=== PATIENT | female | born 1995 | race Caucasian/White ===

== ENCOUNTER 2020-09-09 10:30 | Emergency (ER) | payer OTHER, SELFPAY ==
[2020-09-09 10:49] VITALS: BP 124/55; PULSE 109; RESP 16; TEMP 37.7; O2SAT 97; BMI 35.2
[2020-09-09] MEDS: Acetaminophen 325 MG TABLET 650 MG PO (11:09)
--- NOTE | 2020-09-09 11:11 | ED_ITS ---
HPI - Skin/Abscess/Foreign Bdy General Chief complaint: Skin/Abscess/Foreign Body Stated complaint: abscess Time Seen by Provider: 09/09/20 10:53 Source: patient Mode of arrival: ambulatory History of Present Illness HPI narrative: 25-year-old female presenting to ED complaining of worsening abscess to right flank x4 days with subjective fever at home. Admits was seen at urgent care on Wednesday, did not have I&D, but was prescribed Keflex and Bactrim without improvement. Admits area is growing/ more erythematous /painful. Denies drainage from area MD complaint: abscess/boil Onset (ago): day(s) Location: back Related Data Allergies Allergy/AdvReac Type Severity Reaction Status Date / Time adhesive AdvReac Rash Verified 09/09/20 10:48 Review of Systems Review of Systems: Constitutional: No Weight loss, +subjective Fever, No Chills Cardiovascular: No Chest Pain, No SOB Respiratory: No Cough, No Sputum Gastrointestinal: No Nausea, No Vomiting, No Diarrhea, No Abdominal pain Musculoskeletal: No joint pain, No Myalgias, No Joint Swelling Skin: + red painful lump/abscess to back Neuro: No Weakness, No Numbness, No Paresthesias Yes all other systems are reviewed and are negative [facility] Past Medical History Attestation statement: The following information was validated with the patient. Medical History (Updated 09/09/20 @ 10:56 by Brigette Han) No known health problems No known health problems Surgical History (Updated 09/09/20 @ 10:56 by Brigette Han) History of tonsillectomy Social History Social History Advance Directives: No Advance Directives Information Provided: No Physical Exam Vital Signs: Vital Signs: Vital Signs Temp Pulse Resp BP Pulse Ox 09/09/20 10:49 99.9 F 109 H 16 124/55 L 97 Body Mass Index 35.2 Const: General: cooperative and healthy appearing Orientation/consciousness: patient oriented x3 Limitations: no limitations HENMT: Head: Yes normal to inspection Ears: hearing grossly normal bilaterally General nose exam: Normal external nose present Face and sinus: Yes normal facial exam Eyes: General: appearance normal, both eyes and all related structures EOM: EOMs intact bilaterally Neck: Neck: Yes normal visual inspection Resp: Effort & Inspection: normal respiratory effort Cardio: Rate: regular rate Skin: Other: + abscess noted to right flank with surrounding erythema. + pointing with central fluctuance and surrounding induration. No streaking Rashes: no rashes Neuro: General: patient oriented x3 Gait exam (Neuro): Normal gait present Extrem: General: Yes normal to inspection Course Course Course Narrative: - moderate amount of pus drainage expressed from I&D of abscess - no leukocytosis, lactate negative - will switch patient's antibiotic to clindamycin, instructed to stop taking Bactrim/Keflex. Should be re-evaluated in 2 days Procedures Abscess I/D Site: back Side (if applicable): right Local Anesthetic: lidocaine 1% Amount of anesthesia used (mL): 3 Sent for culture/gram staining?: No Packing used?: none Complications: pain MDM - Skin/Abscess/Foreign Bdy MDM Narrative Medical decision making narrative: On exam low-grade temp 99.9?, tachycardic likely from fever, abscess noted to right flank with central fluctuance. Low concern for severe sepsis, likely local infection that needs drainage low concern for severe sepsis Will perform I&D, labs, lactate/blood cultures Differential Diagnosis Differential diagnosis: Likely abscess of skin or subcutaneous tissue and cellulitis Lab Data Result diagrams: 09/09/20 11:37 09/09/20 11:37 Labs: Lab Results 09/09/20 09/09/20 09/09/20 Range/Units 11:37 11:37 11:37 WBC 7.5 (4.8-10.8) X10*3/uL RBC 4.47 (4.20-5.50) X10*6/uL Hgb 12.3 (12.0-16.0) g/dl Hct 38.4 (37-47) % MCV 85.9 (80-98) fL MCH 27.5 (27.0-33.0) pg MCHC 32.0 (31.0-35.0) g/dl RDW 14.0 (11.0-16.0) % Plt Count 271 (160-400) X10*3/uL MPV 10.4 (9.4-12.3) fL Immature Gran % (Auto) 0.7 H (0.0-0.4) % Neut % (Auto) 83.4 H (45-73) % Lymph % (Auto) 8.4 L (20-40) % [place] % (Auto) 5.6 (2-11) % Eos % (Auto) 1.6 (0-4) % Baso % (Auto) 0.3 (0-2) % Lymph # (Auto) 0.6 L (1.2-4.9) X10*3/uL [place] # (Auto) 0.4 (0.1-1.2) X10*3/uL Eos # (Auto) 0.1 (0.0-0.4) X10*3/uL Baso # (Auto) 0.0 (0.0-0.2) X10*3/uL Abs Immat Gran (auto) 0.05 H (0.00-0.03) X10*3/uL Absolute Neuts (auto) 6.3 (2.0-8.3) X10*3/uL Absolute Nucleated RBC 0.000 (0.0-0.012) X10*3/uL Nucleated RBC % (auto) 0.0 (0.0-0.2) /100WBC Smear Tech's Comments VERIFIED Sodium 135 (135-145) mmol/L Potassium 4.7 (3.3-5.1) mmol/l Chloride 101 (96-108) mmol/L Carbon Dioxide 26 (22-29) mmol/L Anion Gap 13 (12-20) BUN 6 L (9-16) mg/dL Creatinine 0.73 (0.5-1.4) mg/dL Estim Creat Clear Calc 111.4 Estimated GFR > 60 Random Glucose 114 (60-115) mg/dL Lactic Acid 0.7 (0.5-2.0) mmol/L Calcium 9.2 (8.4-10.2) mg/dL
[2020-09-09 11:45] LABS: Basophils Percent Auto 0.3 % (0-2); Eosinophils Absolute Auto 0.1 X10*3/uL (0.0-0.4); Eosinophils Percent Auto 1.6 % (0-4); Hematocrit 38.4 % (37-47); Hemoglobin 12.3 g/dl (12.0-16.0); Imm Gran Abs Auto 0.05 X10*3/uL (0.00-0.03); Imm Gran Pct Auto 0.7 % (0.0-0.4); Lymphocytes Absolute Auto 0.6 X10*3/uL (1.2-4.9); Lymphocytes Percent Auto 8.4 % (20-40); MANUAL DIFF FLAG SCAN; Mean Corpuscular Hemoglobin 27.5 pg (27.0-33.0); Mean Corpuscular Volume 85.9 fL (80-98); Mean Platelet Volume 10.4 fL (9.4-12.3); Monocytes Absolute Auto 0.4 X10*3/uL (0.1-1.2); Monocytes Percent Auto 5.6 % (2-11); Neutrophils Absolute Auto 6.3 X10*3/uL (2.0-8.3); Neutrophils Percent Auto 83.4 % (45-73); Platelet Count 271 X10*3/uL (160-400); Red Blood Count 4.47 X10*6/uL (4.20-5.50); SCAN SMEAR FLAG 1; White Blood Count 7.5 X10*3/uL (4.8-10.8)
[2020-09-09 12:04] LABS: Lactic Acid 0.7 mmol/L (0.5-2.0)
[2020-09-09 12:07] LABS: Anion Gap 13 (12-20); Blood Urea Nitrogen 6 mg/dL (9-16); Calcium 9.2 mg/dL (8.4-10.2); Carbon Dioxide 26 mmol/L (22-29); Chloride 101 mmol/L (96-108); Creatinine Clr Calc Pharmacy 111.4; Estimated Glomerular Filt Rate > 60; Glucose Random 114 mg/dL (60-115); Potassium 4.7 mmol/l (3.3-5.1); Sodium 135 mmol/L (135-145)
[2020-09-09] MEDS: Lidocaine HCl 1 % 20 ML VIAL 5 ML SUBCUT (12:21)
[2020-09-09 12:59] LABS: SLIDE REVIEW VERIFIED
== END 2020-09-09 13:25 | disposition home or self-care (01) ==
PROVIDERS: Physician Assistant; Emergency Provider Emergency Medicine
DX: L02.212 Cutaneous abscess of back [any part, except buttock and flank] (principal)
CPT/HCPCS: 10060; 36415; 80048; 83605; 85025; 87040; 99283

== ENCOUNTER 2020-09-11 11:47 | Emergency (ER) | payer OTHER, SELFPAY ==
[2020-09-11 12:13] VITALS: BP 131/84; PULSE 85; RESP 17; TEMP 37.1; O2SAT 99; BMI 34.2
--- NOTE | 2020-09-11 12:18 | ED.WOUNDLAC ---
HPI - Wound/Laceration General Chief Complaint: Wound/Laceration Stated Complaint: recheck abscess Time Seen by Provider: 09/11/20 12:13 Source: patient Mode of arrival: ambulatory Limitations: no limitations History of Present Illness HPI narrative: 25 y/o here for wound recheck after she had an abscess drained on her right flank here on 09/09. She is feeling much better. She has been taking Clindamycin as prescribed. She states drainage is much less, now almost nothing. No fever, chills, diarrhea. Redness is improving per her boyfriend. Onset (ago): day(s) (4) Location: back Patient tetanus UTD: Yes Associated symptoms: none Treatments prior to arrival: bandage Related Data Previous Rx's Medication Instructions Recorded clindamycin HCl 450 mg PO TID 7 Days #32 cap 09/09/20 Allergies Allergy/AdvReac Type Severity Reaction Status Date / Time adhesive AdvReac Mild Rash Verified 09/11/20 12:16 Review of Systems Review of Systems: Constitutional: No Fever, No Chills Cardiovascular: No Chest Pain, No SOB Respiratory: No Cough Gastrointestinal: No Nausea, No Vomiting, No Diarrhea Musculoskeletal: No joint pain, No Myalgias Skin: +Skin Lesions - improving, No rash Heme/Lymph: No Bruising, No Lymphadenopathy PMFSH Past Medical History Attestation statement: The following information was validated with the patient. Medical History No known health problems No known health problems Surgical History (Updated 09/09/20 @ 10:56 by Brigette Han) History of tonsillectomy Social History Social History Advance Directives: No Advance Directives Information Provided: No Physical Exam Vital Signs: Vital Signs: Vital Signs Temp Pulse Resp BP Pulse Ox 09/11/20 12:13 98.7 F 85 17 131/84 99 Body Mass Index 34.2 Appearance: Alert. No acute distress. HEENT: normal inspection CVS: Normal heart rate and rhythm. Pulses normal. Respiratory: No respiratory distress. Back: right flank with healing abscess, minimal erythema, no drainage, no flutuance Neuro: Oriented X 3. Course Course Course Narrative: healing abscess - no need for further I&D. continue on abx and encouraged warm compresses. Discharge Plan Discharge Clinical Impression: Abscess Patient Disposition: Home, Self-Care Instructions: Abscess Follow-up (ED) Additional Instructions: Continue taking antibiotics as prescribed. Use warm compresses to the area 2-3 times per day to help facilitate additional drainage and healing. If when you are dont with your antibiotics, you notice there is increased pain, redness, drainage come back to the ER for further evaluation. Prescriptions: No Action clindamycin HCl 300 mg capsule 450 mg PO TID 7 Days Qty: 32 RF: 0
== END 2020-09-11 12:28 | disposition home or self-care (01) ==
PROVIDERS: Emergency Provider Emergency Medicine
DX: L02.211 Cutaneous abscess of abdominal wall (principal); R10.9 Unspecified abdominal pain
CPT/HCPCS: 99282; 99283

== ENCOUNTER 2023-08-23 09:51 | Outpatient (AMB) | payer OTHER, SELFPAY ==
[2023-08-23 10:00] VITALS: BP 118/70; PULSE 84; O2SAT 100; BMI 34.0
--- NOTE | 2023-08-23 10:00 | A.OFFPC_ITS ---
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 She needs refills on medications. 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 CPE >1 yr ago Acute issue(s): Wants hormonal info since ectopic Valacyclovir Wellbutrin Sleep apnea - has symptoms but states she does not want to wear a mask. PMHx: Ectopic , HSV1, Anxiety/Depression, PreDM SurgHx: Tonsils 2016 FHx: Sister: DM2. Dad: CAD & Early AR. Mom: HTN. pGF: Colon CA. mGGF: Skin CA SocHx: Vapes. EtOH 1-2 times a week. No drugs. 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 1. Little interest or pleasure in doing things: more than half the days 2. Feeling down, depressed, or hopeless: several days 3. Trouble falling or staying asleep, or sleeping too much: several days 4. Feeling tired or having little energy: nearly every day 5. Poor appetite or overeating: more than half the days 6. Feeling bad about yourself - or that you are a failure or have let yourself or your family down: several days 7. Trouble concentrating on things, such as reading the newspaper or watching television: several days 8. Moving or speaking so slowly that other people could have noticed. Or the opposite - being so fidgety or restless that you have been moving around a lot more than usual: not at all 9. Thoughts that you would be better off or of hurting yourself in some way: not at all Total score: 11 Source: Developed by Drs. David Lang, Mamie Bain, Bob Muro and colleagues, with an educational steve from [employer] Thrive Questionnaire I am a: Patient What is your living situation today?: I have a steady place to live Within the past 12 months, did the food you bought not last and you didn't have the money to get more?: Never true Within the past 12 months, did you worry whether your food would run out before you got money to buy more?: Never true Do you have trouble paying for medicines?: No Do you have trouble getting transportation to medical appointments?: No Do you have trouble paying your heating and electricity bill?: No Do you have trouble taking care of your child, family member or friend?: No Do you have trouble with day-to-day activities such as bathing, preparing meals, shopping, managing finances, etc.?: No Are you currently unemployed and looking for a job?: No Are you interested in more education?: No AUDIT C Alcohol Use Questionnaire (AUDIT-C) 1. How often do you have a drink containing alcohol?: 2-3 times a week 2. How many drinks containing alcohol do you have on a typical day when you are drinking?: 3 or 4 3. How often do you have six or more drinks on one occasion?: Never Total Score: 4 MARILYN-7 AMB Questionnaire MARILYN-7 Feeling nervous, anxious, or on edge: 1 = Several days Not being able to stop or control worryin = Several days Worrying too much about different things: 1 = Several days Trouble relaxin = Several days Being so restless that it is hard to sit still: 1 = Several days Becoming easily annoyed or irritable: 1 = Several days Feeling afraid as if something awful might happen: 1 = Several days Total MARILYN-7 score (0-4 normal; 5-9 mild; 10-14 moderate; 15-21 severe): 7 Source: Developed by Drs. David Lang, Mamie Bain, Bob Muro and colleagues, with an educational steve from [employer]. Review of Systems Const Denies chills, Denies fatigue, Denies fever(s), Denies headache(s) and Denies weakness ENT Denies dizziness and Denies headache(s) Card Denies chest pain, Denies lightheadedness, Denies dyspnea and Denies other (Palpitations) Resp Denies cough, Denies dyspnea, Denies wheezing and Denies other ( shortness of breath) Musc Denies numbness and Denies tingling Neuro Denies dizziness, Denies headache(s), Denies numbness, Denies tingling, Denies paresthesias and Denies weakness Psych Denies anxiety and Denies depression Endo Denies fatigue Aller/Immun Denies wheezing Physical exam (Primary Care) Vital Signs: Last Vital Signs Pulse 84 08/23/23 10:00 BP 118/70 08/23/23 10:00 Pulse Ox 100 08/23/23 10:00 Oxygen Delivery Method Room Air 08/23/23 10:00 BMI result Body Mass Index 34.0 Tobacco/Smoking Status: Tobacco use Status Tobacco use date assessed 08/23/23 08/23/23 10:19 Patient Tobacco Use Status Former Tobacco user 08/23/23 10:19 e-Cigarette/Vaping Use Currently Using 08/23/23 10:19 PHQ-9: PHQ-9 Score PHQ-9: Total score 11 08/23/23 10:24 Const General: no acute distress and well developed Nutritional Appearance: well nourished Orientation/consciousness: patient oriented x3 HENMT Head: Yes normocephalic and Yes atraumatic Eyes General: appearance normal, both eyes and all related structures Pupils: Equal, round and reactive pupils present EOM: EOMs intact bilaterally Resp Effort & Inspection: normal respiratory effort Auscultation: clear to auscultation bilaterally Cardio Rate: regular rate Rhythm: regular rhythm Heart sounds: S1 normal heart sound present, S2 normal heart sound present, no gallops, no murmurs and no rubs Neuro General: patient oriented x3 and gait normal Cranial nerves: Yes Equal, round and reactive pupils present Psych Affect: normal affect Assessment and Plan Assessment & Plan (1) History of ectopic : Code(s): Z87.59 - Personal history of other complications of , childbirth and the puerperium Plan: Check labs Patient is referred to OBGYN for netsuite consultant care (2) Anxiety with depression: Code(s): F41.8 - Other specified anxiety disorders Plan: Stable on bupropion Continue current medication regimen (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 - Herpesviral infection, unspecified Plan: Stable Continue valacyclovir suppression as prescribed (4) Pre-diabetes: Code(s): R73.03 - Prediabetes Plan: Family history of diabetes and patient has personal history of pre diabetes Check A1c (5) Screening for cervical cancer: Code(s): Z12.4 - Encounter for screening for malignant neoplasm of cervix Plan: Referred to OBGYN (6) Sleep apnea: Code(s): G47.30 - Sleep apnea, unspecified Plan: Refer to Sleep Medicine Recommended she sleep on her side and use a wedge pillow (7) Family history of early CAD: Code(s): Z82.49 - Family history of ischemic heart disease and other diseases of the circulatory system Plan: Her father had coronary artery disease and AR at age 45 (8) Laboratory exam ordered as part of routine general medical examination: Code(s): Z00.00 - Encounter for general adult medical examination without abnormal findings Plan: Check labs Orders: Orders Complete Blood Count Auto Diff Today Z00.00 - Encounter for general adult medical examination without abnormal findings Comprehensive [place]. Panel Fast Today Z00.00 - Encounter for general adult medical examination without abnormal findings Lipid Panel Today Z00.00 - Encounter for general adult medical examination without abnormal findings Microalbumin, Random (w Creat) Today I10 - Essential (primary) hypertension UA and rflx microscopic Today Z00.00 - Encounter for general adult medical examination without abnormal findings Lutenizing Hormone Today Z87.59 - Personal history of other complications of , childbirth and the puerperium TSH reflex Free T4 Today Z00.00 - Encounter for general adult medical examination without abnormal findings HCG Quantitative Today Z87.59 - Personal history of other complications of , childbirth and the puerperium Follicle Stimulating Hormone Today Z87.59 - Personal history of other complications of , childbirth and the puerperium Hemoglobin A1c Today R73.01 - Impaired fasting glucose, R73.03 - Prediabetes Referrals [employer]M EXAMINER Referral Z12.4 - Encounter for screening for malignant neoplasm of cervix Sleep Medicine Referral G47.30 - Sleep apnea, unspecified Coding Level of Care Code New Pt Level 4 (67221) Diagnoses History of ectopic Z87.59 Anxiety with depression F41.8 HSV-1 infection B00.9 Pre-diabetes R73.03 Screening for cervical cancer Z12.4 Sleep apnea G47.30 Family history of early CAD Z82.49 Laboratory exam ordered as part of routine general medical examination Z00.00
== END 2023-08-23 10:56 | disposition home or self-care (01) ==
PROVIDERS: PCP Family Medicine; Visit Provider Family Medicine
DX: R73.03 Prediabetes (principal); Z87.59 Personal history of other complications of pregnancy, childbirth and the puerperium; F41.8 Other specified anxiety disorders; Z82.49 Family history of ischemic heart disease and other diseases of the circulatory system; B00.9 Herpesviral infection, unspecified; G47.30 Sleep apnea, unspecified
CPT/HCPCS: 99204

== ENCOUNTER 2023-08-26 10:41 | Outpatient (REF) | payer OTHER, SELFPAY ==
[2023-08-26 13:21] LABS: MANUAL DIFF FLAG NO
[2023-08-26 13:25] LABS: Basophils Percent Auto 0.4 % (0-2); Eosinophils Absolute Auto 0.1 X10*3/uL (0.0-0.4); Eosinophils Percent Auto 0.7 % (0-4); Hematocrit 40.1 % (37.0-47.0); Hemoglobin 13.1 g/dl (12.0-16.0); Imm Gran Abs Auto 0.03 X10*3/uL (0.00-0.03); Imm Gran Pct Auto 0.4 % (0.0-0.4); Mean Corpuscular HGB Conc 32.7 g/dl (31.0-35.0); Mean Corpuscular Hemoglobin 28.7 pg (27.0-33.0); Mean Corpuscular Volume 87.9 fL (80.0-98.0); Mean Platelet Volume 11.5 fL (9.4-12.3); Monocytes Absolute Auto 0.4 X10*3/uL (0.1-1.2); Monocytes Percent Auto 5.2 % (2-11); Neutrophils Absolute Auto 5.6 x10*3/uL (2.0-8.3); Neutrophils Percent Auto 68.3 % (45-73); Platelet Count 273 X10*3/uL (160-400); Red Blood Count 4.56 X10*6/uL (4.20-5.50); Red Cell Distribution Width 14.4 % (11.0-16.0); White Blood Count 8.2 X10*3/uL (4.8-10.8)
[2023-08-26 13:45] LABS: Appearance Urine Cloudy; Color Urine Dark Yellow; Glucose Urine UA Negative (Negative); Leukocyte Esterase Urine Trace (Negative); Nitrite Urine Negative (Negative); Specific Gravity - Urine 1.025 (1.005-1.025); UMIC TRIGGER UA YES; Urine Blood Negative (Negative); Urine Ketones Negative (Negative); Urine Protein Trace mg/dL (Neg-Trace)
[2023-08-26 14:05] LABS: Creatinine Urine 321.69 mg/dL; Microalbum/Creatinine Ratio Ur 4.3 ug/mg cr (<30)
[2023-08-26 14:10] LABS: Alanine Aminotransferase 15 U/L (0-31); Albumin Level 4.2 g/dL (3.5-5.0); Alkaline Phosphatase 54 U/L (39-117); Anion Gap 13 (12-20); Aspartate Amino Transferase 12 U/L (5-31); Bilirubin Total 0.5 mg/dL (0.0-1.0); Blood Urea Nitrogen 9 mg/dL (9-16); Calcium 9.6 mg/dL (8.4-10.2); Carbon Dioxide 24 mmol/L (22-29); Chloride 105 mmol/L (96-108); Cholesterol 166 mg/dL (<200); Estimated Glomerular Filt Rate > 60; Glucose Fasting 83 mg/dL (60-99); HDL Cholesterol 31 mg/dL (>40); LDL Cholesterol Calculated 110 mg/dL (<100); Potassium 4.1 mmol/L (3.3-5.1); Sodium 138 mmol/L (135-145); Triglycerides 125 mg/dL (<150)
[2023-08-26 14:15] LABS: Estimated Average Glucose 108 mg/dL; Hemoglobin A1c % 5.4 % (<6.0)
[2023-08-26 14:20] LABS: Bacteria Urine 2+ (None Seen); Hyaline Casts Urine 0-2 /LPF (0-2); Squamous Epithelial Cell Urine >20 /HPF (0-2); WBC Urine 0-5 /HPF (0-5)
[2023-08-26 14:31] LABS: HCG Quantitative < 2 mIU/mL; TSH reflex Free T4 1.12 uIU/mL (0.32-4.0)
[2023-08-28 05:28] LABS: Follicle Stimulating Hormone 3.4 mIU/mL; Lutenizing Hormone 5.9 mIU/mL
== END 2023-08-26 10:42 | disposition home or self-care (01) ==
LOC: HO.HMGCLDS 10:41
PROVIDERS: PCP Family Medicine; Visit Provider Family Medicine
DX: Z00.00 Encounter for general adult medical examination without abnormal findings (principal); I10 Essential (primary) hypertension; R73.03 Prediabetes; Z87.59 Personal history of other complications of pregnancy, childbirth and the puerperium
CPT/HCPCS: 36415; 80053; 80061; 81001; 82043; 82570; 83001; 83002; 83036; 84443; 84702; 85025

== ENCOUNTER 2023-11-05 13:51 | Outpatient (AMB) | payer OTHER, SELFPAY ==
[2023-11-05 14:04] VITALS: BP 116/68; PULSE 73; O2SAT 98; BMI 33.8
--- NOTE | 2023-11-05 14:04 | A.OFFPC_ITS ---
Vital Signs 11/05/23 14:04 Height 5 ft Weight 173 lb BMI 33.8 BP 116/68 Blood Pressure Location Lt brachial Position Sitting Pulse 73 Pulse Source Pulse Oximeter Pulse Oximetry (%) 98 Oxygen Delivery Method Room Air Intake Visit Reasons: CPE with f/u labs and health maint, see comments Intake Note: Patient is here today for her physical today. Patient is requesting refills of her Wellbutrin today. Allergies adhesive Adverse Reaction (Mild, Verified 11/05/23 14:07) Rash Tobacco use date assessed: 11/05/23 HPI CPE with f/u labs and health maint, see comments HPI Details 28 y/o female presents for a CPE with f/ u labs and health maintenance. Labs were drawn 08/26/23. Reviewed labs with pt. CBC was fine. Triglycerides 125. TC 166. LDL 110. HDL low at 31. She reports last pap smear was normal. 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 1. Little interest or pleasure in doing things: several days 2. Feeling down, depressed, or hopeless: several days 3. Trouble falling or staying asleep, or sleeping too much: several days 4. Feeling tired or having little energy: several days 5. Poor appetite or overeating: more than half the days 6. Feeling bad about yourself - or that you are a failure or have let yourself or your family down: several days 7. Trouble concentrating on things, such as reading the newspaper or watching television: not at all 8. Moving or speaking so slowly that other people could have noticed. Or the opposite - being so fidgety or restless that you have been moving around a lot more than usual: not at all 9. Thoughts that you would be better off or of hurting yourself in some way: not at all Total score: 7 Source: Developed by Drs. David Lang, Mamie Bain, Bob Muro and colleagues, with an educational steve from [employer]. MARILYN-7 AMB Questionnaire MARILYN-7 Date MARILYN - 7 assessed: 11/05/23 Feeling nervous, anxious, or on edge: 1 = Several days Not being able to stop or control worryin = Several days Worrying too much about different things: 1 = Several days Trouble relaxin = Several days Being so restless that it is hard to sit still: 0 = Not at all Becoming easily annoyed or irritable: 0 = Not at all Feeling afraid as if something awful might happen: 1 = Several days Total MARILYN-7 score (0-4 normal; 5-9 mild; 10-14 moderate; 15-21 severe): 5 Source: Developed by Drs. David Lang, Mamie Bain, Bob Muro and colleagues, with an educational steve from [employer]. Physical exam (Primary Care) Vital Signs: Last Vital Signs Pulse 73 11/05/23 14:04 BP 116/68 11/05/23 14:04 Pulse Ox 98 11/05/23 14:04 Oxygen Delivery Method Room Air 11/05/23 14:04 BMI result Body Mass Index 33.8 Tobacco/Smoking Status: Tobacco use Status Tobacco use date assessed 11/05/23 11/05/23 14:11 Patient Tobacco Use Status Former Tobacco user 11/05/23 14:11 e-Cigarette/Vaping Use Currently Using 11/05/23 14:11 PHQ-9: PHQ-9 Score PHQ-9: Total score 7 11/05/23 14:22 Cardio Heart sounds: Murmur heart sound present (Faint) Assessment and Plan Assessment & Plan (1) Adult general medical exam: Code(s): Z00.00 - Encounter for general adult medical examination without abnormal findings Plan: 28-year-old?female?presents?for?complete?physical?exam Encouraged?healthy?diet?with?active?lifestyle?and?plenty?of?exercise (2) Screening for cervical cancer: Code(s): Z12.4 - Encounter for screening for malignant neoplasm of cervix Plan: She?has?an?appointment?with?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?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 director?at?[facility] (3) Faint heart murmur: Code(s): R01.1 - Cardiac murmur, unspecified Plan: Likely?12/04?systolic?murmur Checking?echocardiogram Orders: Orders UA and rflx microscopic Today Z00.00 - Encounter for general adult medical examination without abnormal findings Medications: Changed From bupropion HCl (Wellbutrin XL) 300 mg PO QAM To bupropion HCl (Wellbutrin XL) 300 mg PO QAM 90 days 90 tabs 3RF From bupropion HCl (Wellbutrin XL) 150 mg PO QAM To bupropion HCl (Wellbutrin XL) 150 mg PO QAM 90 days 90 tabs 3RF Coding Level of Care Code Est Pt Level 3 (89968) Est Pt Prev Care 18-39y(42788) Diagnoses Adult general medical exam Z00.00 Screening for cervical cancer Z12.4 Faint heart murmur R01.1
== END 2023-11-05 14:54 | disposition home or self-care (01) ==
PROVIDERS: PCP Family Medicine; Visit Provider Family Medicine
DX: Z00.00 Encounter for general adult medical examination without abnormal findings (principal); R01.1 Cardiac murmur, unspecified
CPT/HCPCS: 99213; 99395

== ENCOUNTER 2023-11-05 15:08 | Outpatient (REF) | payer OTHER, SELFPAY ==
[2023-11-05 19:17] LABS: Appearance Urine Clear; Color Urine Yellow; Glucose Urine UA Negative (Negative); Leukocyte Esterase Urine Negative (Negative); Nitrite Urine Negative (Negative); Urine Blood Negative (Negative); Urine Ketones Negative (Negative); Urine Protein Negative (Neg-Trace)
== END 2023-11-05 15:09 | disposition home or self-care (01) ==
LOC: HO.LAB 15:08
PROVIDERS: Visit Provider Family Medicine
DX: Z00.00 Encounter for general adult medical examination without abnormal findings (principal)
CPT/HCPCS: 81003

== ENCOUNTER → 2023-11-25 12:53 | Outpatient (REF) | payer OTHER, SELFPAY ==
--- NOTE | 2023-11-25 12:57 | CA_ITS ---
Transthoracic Echocardiogram Patient (Last, First, Middle): Kely Dee, Gender: Female Date of : 1995 Age: 28 Procedure Date: 11/25/2023 Procedure Type: Transthoracic Echocardiogram Location: OP Height: 152.4 cm Weight: 78.02 kg BSA: 1.75 m2 Heart Rate: bpm BP: 120 / 82 mmHg Com Writer: PAOLA Referring MD: Ayden Perez MD Symptoms: R01.1 - Cardiac murmur, unspecified Study Quality: Adequate ECG Rhythm: Sinus Conclusions: - The left ventricular systolic function is normal. The calculated ejection fraction is 61% by biplane method. - No obvious valvular pathology seen on this study. Findings Left Ventricle Normal left ventricular cavity size. There is normal left ventricular wall thickness. The left ventricular systolic function is normal. The calculated ejection fraction is 61% by biplane method. There is no evidence of regional wall motion abnormalities. Diastolic function is normal for age. LV peak GLS -23.1% (normal). Right Ventricle Normal right ventricular cavity size and systolic function. Atria Both atria are normal in size. Aortic Valve There is a normal trileaflet aortic valve. There is no aortic valve stenosis. There is no aortic valve regurgitation. Mitral Valve The mitral valve appears normal. There is no mitral valve regurgitation. There is no mitral valve stenosis. Pulmonic Valve The pulmonic valve is likely normal. Tricuspid Valve Normal tricuspid valve structure. There is trace tricuspid valve regurgitation. There is no evidence of pulmonary hypertension. Great Vessels The asc aorta is normal in size. Venous The inferior vena cava is normal in size and collapses greater than 50% with inspiration. Pericardium/Pleural There is no evidence of pericardial effusion. Prior Study Comparison No prior study available for comparison. Recommendations, Care & Conclusions No obvious valvular pathology seen on this study. Measurements 2D Linear Measurements IVSd: 0.80 0.6-0.9/0.6-1.0 cm LVIDd: 5.03 3.9-5.3/4.2-5.9 cm LVIDd Index: 2.87 2.4-3.2/2.2-3.1 cm/m2 LVIDs: 3.07 2.0-3.6 cm LVPWd: 0.82 0.7-1.1 cm LA Diam: 3.70 2.7-3.8/3.0-4.0 cm LAIDs Index: 2.11 1.5-2.3 cm/m2 LV Mass: 173.63 67-162/88-224 g LV Mass Index: 99.22 43-95/49-115 g/m2 LVOT Diam: 2.00 3.0+(-)1.3 cm 2D Systolic Function EF 4C: 64.30 >55% EF 2C: 59.20 >55% EF BiP: 60.90 >55% Mitral Valve MV Pk E: 1.33 MV PK A: 0.45 MV Decel Time: 207.00 E/A: 3.00 E'Lateral: 14.10 E'Medial: 8.81 E/E' Med: 15.10 E/E' Lat: 9.40 PHT: 61.00 MVA PHT: 3.61 Decel [place]: 6.45 Aortic Valve AoV Pk Juan Miguel: 1.56 AoV Mn Juan Miguel: 1.06 AoV VTI: 0.37 AoV Pk Grad: 10.00 Aov Mn Grad: 5.00 TIFFANY Cont.VTI: 2.28 LVOT LVOT Pk Juan Miguel: 1.17 LVOT Mn Juan Miguel: 0.79 LVOT VTI: 0.27 LVOT Pk Grad: 5.00 LVOT Mn Grad: 3.00 LVOT Diam: 2.00 LVOT Area: 3.14 Diastolic Function MV Pk E: 1.33 MV Pk A: 0.45 E/A: 3.00 E'Medial: 8.81 E/E' Med: 15.10 E' Laterial: 14.10 E/E' Lat: 9.40 Right Ventricle TAPSE (mm): 27.30 TVS' Juan Miguel: 13.80 Tricuspid Valve TR Pk Juan Miguel: 2.36 TR Pk Grad: 22.00 RA Press: 3.00 RVSP: 25.00 Great Vessels Aorta Sinus of Valsalva: 2.52 2.0-3.[address] Ridge: 2.26 1.7-3.4 cm Ao Asc: 2.70 2.1-3.4 cm Ao Arch: 2.30 Updated in Other Vendor System with Status of Final John Valdez MD electronically signed on 11/27/2023 11:47:53 AM with status of Final
== END ==
LOC: HO.CARD 12:53
PROVIDERS: PCP Family Medicine; Visit Provider Family Medicine
DX: R01.1 Cardiac murmur, unspecified (principal); Z82.49 Family history of ischemic heart disease and other diseases of the circulatory system
CPT/HCPCS: 93306; 93356

== ENCOUNTER → 2023-11-25 12:57 | Outpatient (BNV) | payer OTHER, SELFPAY | PROVIDERS: PCP Family Medicine; Visit Provider Internal Medicine | DX: R01.1 Cardiac murmur, unspecified (principal) | CPT/HCPCS: 93306 ==

== ENCOUNTER 2023-12-10 15:15 | Outpatient (AMB) | payer OTHER, SELFPAY ==
[2023-12-10 15:17] VITALS: BP 118/68; PULSE 68; O2SAT 98; BMI 32.8
--- NOTE | 2023-12-10 15:17 | A.OFFVIS_ITS ---
Intake Vital Signs 12/10/23 15:17 Height 5 ft Weight 168 lb BMI 32.8 BP 118/68 Blood Pressure Location Rt brachial Position Sitting Pulse 68 Pulse Source Pulse Oximeter Pulse Oximetry (%) 98 Oxygen Delivery Method Room Air Intake Visit Reasons: Snoring Retail Operations Manager Required: No Hand Compositor: Hand Compositor offered & declined Accompanied by: Self / Same As Patient Allergies adhesive Adverse Reaction (Mild, Verified 12/10/23 15:23) Rash Medication List - Last Reconciled 12/10/23 by Louise Guidry LPN bupropion HCl (Wellbutrin XL) 300 mg PO QAM 90 days bupropion HCl (Wellbutrin XL) 150 mg PO QAM 90 days inositol mg PO valacyclovir 500 mg PO DAILY HPI Snoring HPI Details Kely is pleasant 28 year old, minimal former tobacco smoker, currently vapes nicotine. She was referred by PCP for pulmonary evaluation. She reports symptoms suggestive of FRANCK with loud snoring and daytime fatigue. She reports prior paroxsymal nocturnal dyspnea but states after recent weight loss of approximately 20 lbs this has resolved. She reports undergoing a sleep study years ago which was negative and is s/p tonsillectomy. She denies any respiratory symptoms otherwise and is not on any respiratory medications. She denies any pertinent family history. She denies any occupational exposures. She denies any environmental allergies. 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 Cognitive needs: No Hearing needs: No Vision needs: No Review of Systems Const Denies chills, Denies excessive sweating, Denies fever(s), Denies headache(s) and Denies night sweats Eyes Denies dry eyes, Denies irritation and Denies itchy eyes ENT Reports Normal hearing present, Denies headache(s), Denies nasal congestion, Denies nasal discharge, Denies post nasal drip and Denies sore throat Card Denies chest pain, Denies chest pain at rest, Denies chest pain with activity, Denies claudication, Denies leg edema, Denies dyspnea, Denies dyspnea on exertion, Denies orthopnea and Denies paroxysmal nocturnal dyspnea Resp Denies chest congestion, Denies cough, Denies excessive phlegm production, Denies pain on inspiration, Denies pain with cough, Denies dyspnea, Denies dyspnea on exertion, Denies stridor and Denies wheezing Musc Denies myalgias Neuro Reports Normal hearing present and Denies headache(s) Endo Denies excessive sweating Liam/Lymph Denies lymphadenopathy Aller/Immun Denies itchy eyes, Denies seasonal rhinorrhea and Denies wheezing Physical Exam Vital Signs: Last Vital Signs Pulse 68 12/10/23 15:17 BP 118/68 12/10/23 15:17 Pulse Ox 98 12/10/23 15:17 Oxygen Delivery Method Room Air 12/10/23 15:17 BMI result Body Mass Index 32.8 Const General: cooperative, healthy appearing, comfortable, no acute distress, well developed and alert Orientation/consciousness: patient oriented x3 Limitations: no limitations HEENT Head: Yes normal to inspection, Yes normocephalic and Yes atraumatic Ears: hearing grossly normal bilaterally and external ears normal Eyes General: appearance normal, both eyes and all related structures Eyelids: Yes eyelids normal Sclerae: sclerae normal EOM: EOMs intact bilaterally Neck Neck: Yes normal visual inspection and Yes no lymphadenopathy Lymphatic: no lymphadenopathy noted Chest Chest palpation & inspection: normal inspection of the chest Resp Effort & Inspection: normal respiratory effort, able to speak in complete sentences, no audible wheezes, no cough, no stridor, not tachypneic, no tripod positioning and no use of accessory muscles Auscultation: clear to auscultation bilaterally Cardio Jugular venous distension: no JVD Rate: regular rate Rhythm: regular rhythm Skin Other: warm, dry General skin exam: no rashes or lesions noted Neuro General: patient oriented x3 Cranial nerves: Yes Normal hearing present Cognition (Neuro): normal cognition Gait exam (Neuro): Normal gait present Extrem General: Yes normal to inspection, Yes capillary refill normal, Yes no clubbing, cyanosis or edema and Yes no pedal edema Psych Appearance: grossly normal and well kempt Speech and movement: Normal speech and movement present and Clear speech present Affect: normal affect Attitude: cooperative Thought process: Normal thought process present Thought content: Normal thought content present Insight: Good insight present (Psych) Judgement: Good judgement present (Psych) Assessment & Plan Assessment & Plan (1) Daytime somnolence: Code(s): R40.0 - Somnolence (2) Snoring: Code(s): R06.83 - Snoring Plan Kely reports symptoms consistent with obstructive sleep apnea. Will send for home sleep study to evaluate. All questions were answered and patient is in agreement of plan. Will follow up to review results. Orders: Orders RT home sleep study Today R06.83 - Snoring, R40.0 - Somnolence Coding Level of Care Code New Pt Level 3 (32992) Diagnoses Daytime somnolence R40.0 Snoring R06.83
== END 2023-12-10 15:49 | disposition home or self-care (01) ==
PROVIDERS: PCP Family Medicine; Referring Provider Family Medicine; Visit Provider Nurse Practitioner Family
DX: R40.0 Somnolence (principal); R06.83 Snoring
CPT/HCPCS: 99203

== ENCOUNTER → 2023-12-10 15:15 | Outpatient (BNVA) | payer OTHER, SELFPAY | PROVIDERS: PCP Family Medicine; Referring Provider Family Medicine; Visit Provider Nurse Practitioner Family ==

== ENCOUNTER 2023-12-16 15:28 | Outpatient (AMB) | payer OTHER, SELFPAY ==
--- NOTE | 2023-12-16 15:06 | MHC.PC.OV ---
Intake Visit Reasons: f/u murmur Intake Note: Patient is following up on testing for heart murmur today. Allergies adhesive Adverse Reaction (Mild, Verified 12/16/23 15:25) Rash Tobacco use date assessed: 12/16/23 HPI f/u murmur HPI Details Follow-up?echocardiogram?for?faint?systolic?murmur Echocardiogram?is?normal.?? She?had?also?had?mild?hematuria?on?urinalysis.??Repeat?urinalysis?is?clear. Lastly,?patient?is?requesting?medication?for?weight?loss?and?has?a?sister?who?uses?Wegovy. Patient?has?history?of?pre?diabetes?and?family?history?of?diabetes. 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 David Lang, Mamie Bain, Bob Muro and colleagues, with an educational steve from [employer]. Review of Systems Const Denies chills, Denies fatigue, Denies fever(s), Denies headache(s) and Denies weakness ENT Denies dizziness and Denies headache(s) Card Denies chest pain, Denies lightheadedness, Denies dyspnea and Denies other (Palpitations) Resp Denies cough, Denies dyspnea, Denies wheezing and Denies other ( shortness of breath) Musc Denies numbness and Denies tingling Neuro Denies dizziness, Denies headache(s), Denies numbness, Denies tingling, Denies paresthesias and Denies weakness Psych Denies anxiety and Denies depression Endo Denies fatigue Aller/Immun Denies wheezing Physical exam (Primary Care) Tobacco/Smoking Status: Tobacco use Status Tobacco use date assessed 12/16/23 12/16/23 15:27 Patient Tobacco Use Status Former Tobacco user 12/16/23 15:07 e-Cigarette/Vaping Use Currently Using 12/16/23 15:07 Const Other: Telemedicine?encounter.??Audio?only.??No?exam Telehealth Telehealth Location of provider rendering services: practice address Location of patient: address on file Patient Identification confirmed using: Name, : Yes Telehealth method: voice only Patient verbally consented to treatment: Yes Patient verbally consented to billing insurance company: Yes Patient informed of any privacy concerns related to visit: Yes Minutes spent on Phone/Video with Pt.: 5 Assessment and Plan Assessment & Plan (1) Benign cardiac murmur: Code(s): R01.0 - Benign and innocent cardiac murmurs Plan: Echocardiogram?is?normal. Benign?cardiac?murmur (2) Pre-diabetes: Code(s): R73.03 - Prediabetes Plan: Pre?diabetes?and?obesity. Patient?would?like?to?try?Wegovy. Order (3) Obesity: Code(s): E66.9 - Obesity, unspecified Plan: As?above Coding Level of Care Code Tele Est Pt Level 2 (18694) Diagnoses Benign cardiac murmur R01.0 Pre-diabetes R73.03 Obesity E66.9
--- OUTSIDE RECORDS SUMMARY | 2023-12-16 15:30 | XMS_ITS | Continuity of Care Document ---
Author Name Unknown Organization [facility] Address [address] [place] [address]- Care Team Providers Care Storeroom Supervisor Name Role Phone Not on Staff, PCP Primary Care Physician Unavail able Encounter [facility] Date(s): 05/12/22 - 05/12/[address] [address]- Encounter Diagnosis of unknown anatomic location(Discharge Diagnosis) - 05/12/22 Discharge Disposition: A-D/C Home Attending Physician: Analy Patel MD Admitting Physician: Analy Patel MD Referring Physician: Not on Staff, Referring MD Problem List Diagnosis Diagnosis Type Effective Dates Health Status Cl inical Service Informant of unknown anatomic location Discharge Diagnosis 05/12/22 Vital Signs Most recent to oldest [Reference Range]: 1 2 3 Oxygen Saturation [94-100 %] 100 % (05/12/22 3:10 PM) 100 % (05/12/22 11:51 AM) 100 % (05/12/22 8:16 AM) Pulse Rate [55-90 bpm] 62 bpm (05/12/22 3:10 PM) 72 bpm (05/12/22 11:51 AM) 70 bpm (05/12/22 8:16 AM) Blood Pressure [90-138/55-84 mm Hg] 118/74mm Hg (05/12/22 3:10 PM) 115/77mm Hg (05/12/22 11:51 AM) 123/71mm Hg (05/12/22 8:16 AM) Respiratory Rate [16-30 br/min] 16 br/min (05/12/22 3:10 PM) 15 br/min *L* (05/12/22 11:51 AM) 14 br/min *L* (05/12/22 8:16 AM) Temperature [96.8-100.4 DegF] 97.6 DegF (05/12/22 8:16 AM) 97.8 DegF (05/12/22 7:23 AM) Mode of Delivery (Oxygen) Room air (05/12/22 3:10 PM) Room air (05/12/22 11:51 AM) Room air (05/12/22 8:16 AM) Blood pressure sites Arm, left (05/12/22 8:16 AM) Arm, right (05/12/22 7:23 AM) Temperature Route Oral (05/12/22 8:16 AM) Oral (05/12/22 7:23 AM)
--- OUTSIDE RECORDS SUMMARY | 2023-12-16 15:30 | XMS_ITS | Continuity of Care Document ---
Author Name Unknown Organization [facility] Address [address] [place] [address]- Care Team Providers Care Cathode Ray Tube Assembler Name Role Phone Not on Staff, PCP Primary Care Physician Unavail able Encounter [facility] Date(s): 05/12/22 - 06/11/[address] [address]- Allergies, Adverse Reactions, Alerts Substance Reaction Severity Status Latex Rash Active Medications ValACYclovir = 500 mg, By Mouth, 0 Refills, Maintenance, 05/26/22 12:56:00 EDT, Partial fill upon patient request if the prescription is for a schedule II opioid drug. Start Date: 05/26/22 Status: Ordered Wellbutrin 100 mg oral tablet = 300 mg, By Mouth, 0 Refills, Maintenance, 05/26/22 12:55:00 EDT, Partial fill upon patient request if the prescription is for a schedule II opioid drug. Start Date: 05/26/22 Status: Ordered
--- OUTSIDE RECORDS SUMMARY | 2023-12-16 15:30 | XMS_ITS | Continuity of Care Document ---
Author Name Unknown Organization [facility] Address [address] [place] [address]- Care Team Providers Care Sled Maker Name Role Phone Not on Staff, PCP Primary Care Physician Unavail able Encounter [facility] Date(s): 06/17/22 - 07/17/[address] [address]- Attending Physician: Rayshawn Flanagan Admitting Physician: Rayshawn Flanagan Referring Physician: AdmtrRayshawn Allergies, Adverse Reactions, Alerts Substance Reaction Severity Status Latex Rash Active Medications Balziva 0.4 mg-35 mcg oral tablet 1 tablet, By Mouth, Daily, # 30 tablet, 3 Refills, Maintenance, 06/17/22 9:10:00 EDT, [facility]/pharmacy #[id number], Partial fill upon patient request if the prescription is for a schedule II opioid drug., 1 tablet By Mouth Daily, 152.4, cm, 06/17/22 8:25:00 EDT... Start Date: 06/17/22 Status: Ordered ValACYclovir = 500 mg, By Mouth, 0 [...] opioid drug. Start Date: 05/26/22 Status: Ordered Problem List Condition Effective Dates Status Health Status Inform ant Obese class I(Confirmed) Active
--- OUTSIDE RECORDS SUMMARY | 2023-12-16 15:30 | XMS_ITS | Continuity of Care Document ---
Author Name Unknown Organization [facility] Address [address] [place] [address]- Care Team Providers Care Job Printer Name Role Phone Not on Staff, PCP Primary Care Physician Unavail able Encounter [facility] Date(s): 05/26/22 - 06/25/[address] [address]- Allergies, Adverse Reactions, Alerts Substance Reaction Severity Status Latex Rash Active Medications Balziva 0.4 mg-35 mcg oral tablet 1 tablet, By Mouth, Daily, # 30 tablet, 3 Refills, Maintenance, 06/17/22 9:10:00 EDT, [facility]/pharmacy #[id number], Partial fill upon patient request [...]
--- OUTSIDE RECORDS SUMMARY | 2023-12-16 15:30 | XMS_ITS | Continuity of Care Document ---
Author Name Unknown Organization [facility] Address [address] [place] [address]- Care Team Providers Care Assurance Auditor Name Role Phone Ravi Elena Primary Care Physician [phone] Encounter [facility] Date(s): 06/22/23 - 07/22/23 [facility] [address] [place], [place] [address] Allergies, Adverse Reactions, Alerts Substance Reaction Severity Status Latex Rash Active Immunizations Given and Recorded Vaccine Date Status Refusal Reason tetanus/diphtheria/pertussis, acel(Tdap) 01/09/22 Recorded Medications buPROPion 150 mg/24 hours (XL) oral tablet, extended release 1 tablet = 150 mg, By Mouth, Every 24 hours, Take with a 300 mg tablet for total dose of 450 mg, # 90 tablet, 1 Refills, Maintenance, 07/15/23 13:49:00 EDT, ER Tablet, [facility]/pharmacy #[id number], Partial fill upon patient request if the prescription is for a... Start Date: 07/15/23 Status: Ordered buPROPion 300 mg/24 hours (XL) oral tablet, extended release 1 tablet, By Mouth, Daily, # 90 tablet, 1 Refills, Maintenance, 07/15/23 13:48:00 EDT, [facility]/pharmacy#[id number], 152.4, cm, 12/17/22 11:29:00 EST, Height, 76.3, kg, 05/26/22 13:09:00 EDT, Dry Weight Start Date: 07/15/23 Status: Ordered valACYclovir 500 mg oral tablet 500 mg, By Mouth, Daily, # 90 capsule, Refills 3, Tot. Refills 3, Maintenance, 07/15/23 13:50:00 EDT, Route to Pharmacy Electronically, [facility]/pharmacy #[id number], Partial fill upon patient request if the prescription is for a schedule II opioid drug., 152.4,... Start Date: 07/15/23 Status: Ordered Problem List Condition Confirmation Course Effective Dates Status Health St atus Informant Obese class I Confirmed Active Social History Social History Type Response Smoking Status Former smoker, quit more than 30 days ago entered on: 12/17/22 Sex Patient Care team information Care Team Personnel Name: Ravi Elena Position: S PCO Associate Professional Member Role: PCP Address: Address: [address] [place] [address] [facility] [address]- Care Team Related Persons Name: SAMARA CALLEJAS Address: home [address] [place] [address] Name: DAKOTA CALLEJAS Address: [address] [place] [address] Name: LUIZA SANTOS Address: [address] [place] [address]
--- OUTSIDE RECORDS SUMMARY | 2023-12-16 15:30 | XMS_ITS | Continuity of Care Document ---
Author Name Unknown Organization [facility] Address [address] [place] [address]- Care Team Providers Care Hris Administrator Name Role Phone Ravi Elena Primary Care Physician [phone] Encounter [facility] Date(s): 07/15/23 - 08/14/23 [facility] [address] [place] [address]- Attending Physician: Rayshawn Flanagan Admitting Physician: Rayshawn [...] Refills, Maintenance, 07/15/23 13:49:00 EDT, ER Tablet, [facility]/pharmacy #[id number], Partial fill upon patient request if the prescription is for a... Start Date: 07/15/23 Status: Ordered buPROPion 300 mg/24 hours (XL) oral tablet, extended release 1 tablet, By Mouth, Daily, # 90 tablet, 1 Refills, Maintenance, 07/15/23 13:48:00 EDT, [facility]/pharmacy#[id number], 152.4, cm, 12/17/22 11:29:00 EST, Height, 76.3, kg, 05/26/22 13:09:00 EDT, Dry Weight Start Date: 07/15/23 Status: Ordered valACYclovir 500 mg oral tablet 500 mg, By Mouth, Daily, # 90 capsule, Refills 3, Tot. Refills 3, Maintenance, 07/15/23 13:50:00 EDT, Route to Pharmacy Electronically, [facility]/pharmacy #[id number], Partial fill upon patient request if the [...] Associate Professional Member Role: PCP Address: Address: [address] [place] [address] [place] [address]- Care Team Related Persons Name: SAMARA CALLEJAS Address: home [address] [place] [id number] Name: DAKOTA CALLEJAS Address: home [address] [place] [address] Name: LUIZA SANTOS Address: [address] [address]
--- OUTSIDE RECORDS SUMMARY | 2023-12-16 15:30 | XMS_ITS | Continuity of Care Document ---
Author Name Unknown Organization [facility] Address [address] [facility] [place] [address]- Care Team Providers Care Orthodontic Lab Technician Name Role Phone Not on Staff, PCP Primary Care Physician Unavail able [place] [facility] [place] 05/21/22 - 06/20/22 [facility] Sherlyn Velizs [facility] [address] [facility] [place] [address]- Allergies, Adverse Reactions, Alerts Substance Reaction Severity Status Latex Rash Active Medications Balziva 0.4 mg-35 mcg oral tablet 1 tablet, By Mouth, Daily, # 30 tablet, 3 Refills, Maintenance, 06/17/22 9:10:00 EDT, [facility]/pharmacy #[id number], Partial fill upon patient request if [...]
--- OUTSIDE RECORDS SUMMARY | 2023-12-16 15:30 | XMS_ITS | Continuity of Care Document ---
Author Name Unknown Organization [facility] Address [address] [place] [address]- Care Team Providers Care Technologist Infectious Disease Name Role Phone Ravi Elena Primary Care Physician Encounter [facility] Date(s): 03/19/23 - 07/17/23 [facility] [address] [place], [place] [address] Attending Physician: Britni Prakash MD Allergies, Adverse Reactions, Alerts Substance Reaction Severity [...] Refills, Maintenance, 07/15/23 13:49:00 EDT, ER Tablet, [facility]/pharmacy #[id number], Partial fill upon patient request [...] 07/15/23 13:50:00 EDT, Route to Pharmacy Electronically, [facility]/pharmacy #[id number], Partial fill upon patient request if the [...] Care Team Personnel Name: Ravi Elena Position: [facility] PCO Associate Professional Member Role: PCP Address: Address: [address] [place] [address] [place] [address]- Care Team Related Persons Name: SAMARA CALLEJAS Address: home [address] [place] [address] Name: DAKOTA CALLEJAS Address: [address] [place] [address] Name: LUIZA SANTOS Address: [place] [address] [place] [address]
--- OUTSIDE RECORDS SUMMARY | 2023-12-16 15:30 | XMS_ITS | Continuity of Care Document ---
Author Name Unknown Organization [facility] Sherlyn garcias [facility] Address [address] [place] [address]- Care Team Providers Care Associate Professor Of Art History Name Role Phone Not on Staff, PCP Primary Care Physician Unavail able Encounter [facility] Date(s): 05/18/22 - 06/17/22 [facility] Sherlyn Velizs [facility] [address] [facility] [place] [address]- Allergies, Adverse Reactions, Alerts Substance Reaction Severity Status Latex Rash Active Medications Balziva 0.4 mg-35 mcg oral tablet 1 tablet, By Mouth, Daily, # 30 tablet, 3 Refills, Maintenance, 06/17/22 9:10:00 EDT, [facility]/pharmacy #[id number], Partial [...]
--- OUTSIDE RECORDS SUMMARY | 2023-12-16 15:30 | XMS_ITS | Continuity of Care Document ---
Author Name Unknown Organization [facility] Sherlyn Crocker n's [facility] Address [address] [facility] [place] [address]- Care Team Providers Care Whipper Beater Name Role Phone Not on Staff, PCP Primary Care Physician Unavail able [place] [facility] [place]22 [facility] Sherlyn Velizs [facility] [address] [facility] [place] [address]- Allergies, Adverse Reactions, Alerts Substance Reaction Severity Status Latex Rash Active Medications Balziva 0.4 mg-35 mcg oral tablet 1 tablet, By Mouth, Daily, # 30 tablet, 3 Refills, Maintenance, 06/17/22 9:10:00 EDT, [facility]/pharmacy #[id number], Partial fill upon patient [...]
--- OUTSIDE RECORDS SUMMARY | 2023-12-16 15:30 | XMS_ITS | Continuity of Care Document ---
Author Name Unknown Organization [facility] Sherlyn Crocker n's [facility] Address [address] [facility], [address] [place] [address]- Care Team Providers Care Rough Planer Tender Name Role Phone Not on Staff, PCP Primary Care Physician Unavail able [place] [facility] [place] 05/20/22 - 06/19/22 [facility] Sherlyn Velizs [facility] [address] [facility], [address] [place] [address]- Allergies, Adverse Reactions, Alerts Substance Reaction Severity Status Latex Rash Active Medications Balziva 0.4 mg-35 mcg oral tablet 1 tablet, By Mouth, Daily, # 30 tablet, 3 Refills, Maintenance, 06/17/22 9:10:00 EDT, [facility]/pharmacy #[id number], Partial fill upon patient request if [...]
--- OUTSIDE RECORDS SUMMARY | 2023-12-16 15:30 | XMS_ITS | Continuity of Care Document ---
Author Name Unknown Organization [facility] Address [address] [place] [address]- Care Team Providers Care Customer Service Dispatcher Name Role Phone Not on Staff, PCP Primary Care Physician Unavail able Encounter [place] Date(s): 05/14/22 - 06/13/[address] [address]- Allergies, Adverse Reactions, Alerts Substance Reaction Severity [...]
--- OUTSIDE RECORDS SUMMARY | 2023-12-16 15:30 | XMS_ITS | Continuity of Care Document ---
Author Name Unknown Organization [facility] Address [address] [place] [address]- Care Team Providers Care Health Care Legal Assistant Name Role Phone Not on Staff, PCP Primary Care Physician Unavail able Encounter [facility] [id number] Date(s): 10/08/22 - 11/07/22 [facility] [address] [place] [address]- Allergies, Adverse Reactions, Alerts Substance Reaction Severity Status Latex Rash Active Medications Balziva 0.4 mg-35 mcg oral tablet 1 tablet, By Mouth, Daily, # 30 tablet, 3 Refills, Maintenance, 06/17/22 9:10:00 EDT, [facility]/pharmacy #[id number], Partial fill upon patient request [...] Date: 05/26/22 Status: Ordered Problem List Condition Confirmation Course Effective Dates Status Health St atus Informant Obese class I Confirmed Active Patient Care team information Care Team Personnel Name: Not on Staff, PCP Position: S Physician (General Medicine) Member Role: PCP Care Team Related Persons Name: SAMARA CALLEJAS Address: home [address] [place] [id number] Name: DAKOTA CALLEJAS Address: [address] [address] Name: LUIZA SANTOS Address: [address] [address]
--- OUTSIDE RECORDS SUMMARY | 2023-12-16 15:30 | XMS_ITS | Continuity of Care Document ---
Author Name Unknown Organization [facility] Address [address] [place] [address]- Care Team Providers Care Fire Support Man Name Role Phone Not on Staff, PCP Primary Care Physician Unavail able [place] [facility] [place] Date(s[place] 05/26/22 - 05/26/[address] [address]- Discharge Disposition: A-D/C Home Attending Physician: Mesfin NEGRO [OB], Carmel Billings Admitting Physician: Mesfin NEGRO [OB]Carmel Referring Physician: Mesfin NEGRO [OB]Carmel Allergies, Adverse Reactions, Alerts Substance Reaction Severity [...] opioid drug. Start Date: 05/26/22 Status: Ordered Procedures Procedure Date Related Diagnosis Body Site Status History of tonsillectomy Completed Vital Signs Most recent to oldest [Reference Range]: 1 Height 152.4 cm (05/26/22 1:55 PM) Weight 76.3 kg (05/26/22 12:30 PM) Oxygen Saturation [94-100 %] 100 % (05/26/22 12:30 PM) Blood Pressure [90-138/55-84 mm Hg] 135/ 74mm Hg (05/26/22 12:30 PM) Respiratory Rate [16-30 br/min] 20 br/mi n (05/26/22 12:30 PM) Temperature [96.8-100.4 DegF] 99.8 DegF (05/26/22 12:30 PM) Mode of Delivery (Oxygen) Room air (05/26/22 12:30 PM) Blood pressure sites Arm, right (05/26/22 12:30 PM) Temperature Route Oral (05/26/22 12:30 PM) Dry Weight 76.3 kg (05/26/22 12:30 PM) Weight Obtained Via Standing scale (05/26/22 12:30 PM) Dry Weight Obtained Via Standing scale (05/26/22 12:30 PM)
--- OUTSIDE RECORDS SUMMARY | 2023-12-16 15:30 | XMS_ITS | Continuity of Care Document ---
Author Name Unknown Organization [facility] Address [address] [place] [address]- Care Team Providers Care Compress Machine Operator Name Role Phone Not on Staff, PCP Primary Care Physician Unavail able Encounter [facility] [place] Date(s): 06/02/22 - 07/02/[address] [address]- Allergies, Adverse Reactions, Alerts Substance Reaction Severity Status Latex Rash Active Medications Balziva 0.4 mg-35 mcg oral tablet 1 tablet, By Mouth, Daily, # 30 tablet, 3 Refills, Maintenance, 06/17/22 9:10:00 EDT, [facility]/pharmacy #[id number], Partial fill upon patient [...]
--- OUTSIDE RECORDS SUMMARY | 2023-12-16 15:30 | XMS_ITS | Continuity of Care Document ---
Author Name Unknown Organization [facility] Address [address] [place] [address]- Care Team Providers Care Supervisor Hydrochloric Area Name Role Phone Not on Staff, PCP Primary Care Physician Unavail able Encounter [facility] [place] Date(s): 06/03/22 - 07/03/[address] [address]- Allergies, Adverse Reactions, Alerts Substance Reaction Severity Status Latex Rash Active Medications Balziva 0.4 mg-35 mcg oral tablet 1 tablet, By Mouth, Daily, # 30 tablet, 3 Refills, Maintenance, 06/17/22 9:10:00 EDT, [facility]/pharmacy #[id number], Partial fill upon patient request [...]
--- OUTSIDE RECORDS SUMMARY | 2023-12-16 15:30 | XMS_ITS | Continuity of Care Document ---
Author Name Unknown Organization [facility] Address [address] [place] [address]- Care Team Providers Care Sales Engineer Engineered Products Name Role Phone Ravi Elena Primary Care Physician Encounter [facility] Date(s): 07/18/23 [facility] [address] [place], [place] [id number]- [place] Allergies, Adverse Reactions, Alerts Substance Reaction Severity [...] Refills, Maintenance, 07/15/23 13:49:00 EDT, ER Tablet, [facility]/pharmacy #[id number], Partial fill upon patient [...] 07/15/23 13:50:00 EDT, Route to Pharmacy Electronically, [facility]/pharmacy #[id number], Partial fill upon patient [...] Care Team Personnel Name: Ravi Elena Position: [facility] PCO Associate Professional Member Role: PCP Address: Address: [address] [place] [address] Primary [place] [address]- Care Team Related Persons Name: SAMARA CALLEJAS Address: home [address] [place] [address] Name: DAKOTA CALLEJAS Address: [address] [place] [address] Name: LUIZA SANTOS Address: [address] [place] [address]
--- OUTSIDE RECORDS SUMMARY | 2023-12-16 15:30 | XMS_ITS | Continuity of Care Document ---
Author Name Unknown Organization [facility] Address [address] [place] [address]- Care Team Providers Care Pearl Peller Name Role Phone Not on Staff, PCP Primary Care Physician Unavail able Encounter [facility] [place] Date(s): 06/10/22 - 07/10/[address] [address]- Allergies, Adverse Reactions, Alerts Substance Reaction Severity Status Latex Rash Active Medications Balziva 0.4 mg-35 mcg oral tablet 1 tablet, By Mouth, Daily, # 30 tablet, 3 Refills, Maintenance, 06/17/22 9:10:00 EDT, [facility]/pharmacy #[id number], Partial fill upon patient request [...]
== END 2023-12-16 16:00 ==
LOC: HO.HMGFM 15:28
PROVIDERS: PCP Family Medicine; Visit Provider Family Medicine
DX: R01.0 Benign and innocent cardiac murmurs (principal); R73.03 Prediabetes; E66.9 Obesity, unspecified
CPT/HCPCS: 99441

== ENCOUNTER 2023-12-17 10:03 | Outpatient (AMB) | payer OTHER, SELFPAY ==
[2023-12-17 10:05] VITALS: BP 120/72; BMI 32.6
--- NOTE | 2023-12-17 10:05 | MHC.OFFVIS ---
Intake Vital Signs 12/17/23 10:05 Height 5 ft Weight 167 lb BMI 32.6 BP 120/72 Intake Visit Reasons: New patient Annual Sales Technician Home Theater Required: No Information Interpreted: non-clinical & clinical Body Press Operator: Body Press Operator Present (Jonathan) Allergies adhesive Adverse Reaction (Mild, Verified 12/17/23 10:06) Rash Medication List - Last Reconciled 12/17/23 by Jessica Rush CNM bupropion HCl (Wellbutrin XL) 300 mg PO QAM 90 days bupropion HCl (Wellbutrin XL) 150 mg PO QAM 90 days inositol mg PO semaglutide (weight loss) (Wegovy) 0.25 mg (0.5 mL) subcut QWEEK 28 days valacyclovir 500 mg PO DAILY Is last menstrual period known: Yes Last menstrual period: 11/21/23 Post menopausal: No HPI New patient Annual HPI Details 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 She says she is to go to [facility] but when she was young she missed a few visits so she isn't able to go back there now she did however get care there more recently on an emergency basis when she had an ectopic that was at 1st thought to be a miscarriage she was eventually treated with methotrexate she previously had had a miscarriage as well she says the ectopic was May of 2022. She is now with a new partner for the last 9 months and they are talking about and anticipating trying in the spring but are open to it now if it happens and not actively contraceptive thing or trying. She gets regular periods. She says she did follow the ectopic all the way to quants being 0. She was prediabetic in the past and she says she lost about 25 lb when she was depressed after a break-up but now she is just trying to eat well and lose weight she was given a prescription for Wegovy but she has not started it yet. 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 She says that when she was 22 years old she had a very abnormal Pap smear such that after the biopsies it was decided that she needed to have a LEEP which she had at [facility]. She also tells me that her mother told her that I delivered her in 1984 at [facility]. Patient also tells me that she is on valacyclovir and has been for many years, she had 1 outbreak and she opted to go on the valacyclovir at that time, and stay on it continuously, and she feels that is serving her well. [facility] Medical History (Updated 12/17/23 @ 11:00 by Jessica Rush CNM) No known health problems No known health problems Surgical History (Updated 12/17/23 @ 10:53 by Jessica Rush CNM) History of loop electrosurgical excision procedure (LEEP) History of tonsillectomy Social History (Updated 12/17/23 @ 10:09 by PLACIDO Bhakta) Housing: Apartment Alcohol intake: current Alcohol intake frequency: a few times a week Patient Tobacco Use Status: Former Tobacco user e-Cigarette/Vaping Use: Currently Using service: No Current occupational status: employed 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 Cognitive needs: No Hearing needs: No Vision needs: No Female Reproductive History Menstrual Age of Menarche: 11 Duration of menses: 3-5 days Date of last menstrual period: 11/21/23 control method: none Total pregnancies: 2 Ab spontaneous: 1 Ectopics: 1 Date of last pap smear: 05/05/19 (negative) History of abnormal pap smear: Yes Physical Exam Vital Signs: BMI result Body Mass Index 32.6 Const General: healthy appearing, comfortable, no acute distress, well developed and alert Nutritional Appearance: average body habitus Orientation/consciousness: patient oriented x3 Limitations: no limitations HEENT Head: Yes normocephalic Neck Neck: Yes normal visual inspection Chest Chest palpation & inspection: normal inspection of the chest Breast/axilla inspection: normal inspection of the breasts and normal inspection of the axillae Breast/axilla palpation: normal palpation of the breasts and normal palpation of the axillae Resp Effort & Inspection: normal respiratory effort GI Inspection: Yes normal to inspection, No Abdominal wall edema and No distended Palpation (GI): Soft to palpation and nontender Other: Normal pelvic exam vagina pink and moist but consistent with luteal phase scant dry discharge. Cervix appears nulliparous and does not appear to be status post LEEP it did bleed with the Pap smear. Uterus midposition mobile nontender good strong muscle tone adnexa nontender. No lesions anyway General: Yes bladder normal to palpation External Female Exam: normal external appearance and normal appearance of the urethra Speculum Exam - Vagina: normal appearance of the vagina, normal palpation and normal vaginal discharge Speculum Exam - Cervix: normal appearance of the cervix, normal palpation and nontender Bimanual exam- vagina & uterus: normal bimanual exam, normal palpation, uterine size normal, bladder normal to palpation, consistency normal, normal palpation, uterine mobility normal, uterine shape normal, No Cervical tenderness present, non-tender and no cervical motion tenderness Bimanual Exam- Adnexa, other: normal adnexae, no masses, normal and No adnexal tenderness Neuro General: patient oriented x3 Assessment & Plan Assessment & Plan (1) Obesity: Code(s): E66.9 - Obesity, unspecified Plan: Working on it, has a prescription for Wegovy that she has not yet started, (2) History of ectopic : Code(s): Z87.59 - Personal history of other complications of , childbirth and the puerperium (3) History of prediabetes: Comment: States she no longer is.... Code(s): Z87.898 - Personal history of other specified conditions (4) Patient desires : Code(s): Z31.9 - Encounter for procreative management, unspecified (5) Hx of herpes simplex infection: Comment: Patient states it was years ago 1 outbreak and she has been on Valtrex ever since as a preventative measure and wishes to stay on it. Code(s): Z86.19 - Personal history of other infectious and parasitic diseases Plan -----Discussed in this visit the following: healthy balanced diet, regular and consistent exercise, getting recommended health screens, doing the best she can for her particular health concerns, kegel exercises, pap smear screening and followup recommendations, mammography screening and SBE, normal changes in cycles in her life stage--- .---I discussed with pt some of the optimal strategies for planning a , including achieving the best health she can before , including heathy balanced diet, exercise, wt loss to ideal BMI if appropriate, avoiding toxic substances and medications, not smoking, and taking a multivitamin w folic acid daily. Any specific health concerns should be managed before seeking/ putting oneself at risk of pregancy. In addition I reviewed normal cycles, fertility awareness and signs of ovulation, and timing to avoid, and achieve when she feel ready. I also discussed emotional and relationship and support readiness before embarking on . Also reviewed that it appeared that at least a year and a half has passed now since her ectopic so this would be an okay time. She certainly is aware of the signs and symptoms of miscarriage and ectopic. I also informed her that we no longer have a birthing center here so can not provide full scope and delivery care and that for first-time mother's as well as for anybody with any medical complications I recommend that the person seek their care with a team that can be involved with their delivery as well so that all questions can be discussed and answered throughout the with the team that is going to be involved. There are any abnormal findings particularly with her Pap smear we will notify her and follow as per ASCCP guidelines. Testing was also done for gonorrhea chlamydia trichomoniasis Gardnerella and Mary. Patient declined other STI tests as not necessary in she did not feel she had a need. I urged her just to double check about the medications that she is on in terms planning. Coding Level of Care Code New Pt Prev Care 18-39yr([id number] Diagnoses Obesity E66.9 History of ectopic Z87.59 History of prediabetes Z87.898 Patient desires Z31.9 Hx of herpes simplex infection Z86.19
== END 2023-12-17 11:08 | disposition home or self-care (01) ==
LOC: HO.HWSM 10:03
PROVIDERS: PCP Family Medicine; Visit Provider Advanced Practice Midwife
DX: Z01.419 Encounter for gynecological examination (general) (routine) without abnormal findings (principal); E66.9 Obesity, unspecified; Z87.59 Personal history of other complications of pregnancy, childbirth and the puerperium; Z87.898 Personal history of other specified conditions; Z31.9 Encounter for procreative management, unspecified; Z86.19 Personal history of other infectious and parasitic diseases
CPT/HCPCS: 99385

== ENCOUNTER 2023-12-17 10:03 | Outpatient (REF) | payer OTHER, SELFPAY ==
[2023-12-18 06:12] LABS: CT PCR NOT DETECTED (Not Detect.); NG PCR NOT DETECTED (Not Detect.)
[2023-12-18 12:50] LABS: BV Int Neg Control Negative (Negative); BV Int Pos Control Positive (Positive)
[2023-12-24 06:05] LABS: HPV mRNA E6/E7 rflx Not Detected (Not Detected)
== END 2023-12-17 10:04 | disposition home or self-care (01) ==
LOC: HO.LNP 10:03
PROVIDERS: PCP Family Medicine; Visit Provider Advanced Practice Midwife
DX: Z12.4 Encounter for screening for malignant neoplasm of cervix (principal); Z11.51 Encounter for screening for human papillomavirus (HPV); Z20.2 Contact with and (suspected) exposure to infections with a predominantly sexual mode of transmission; Z86.19 Personal history of other infectious and parasitic diseases; Z98.890 Other specified postprocedural states
CPT/HCPCS: 0353U; 87480; 87510; 87624; 87660; 88142

== ENCOUNTER → 2024-01-20 14:59 | Outpatient (REF) | payer OTHER, SELFPAY | LOC: HO.SL 14:59 | PROVIDERS: PCP Family Medicine; Visit Provider Nurse Practitioner Family | DX: R40.0 Somnolence (principal); R06.83 Snoring | CPT/HCPCS: 95806 ==

== ENCOUNTER → 2024-01-20 15:08 | Outpatient (BNV) | payer OTHER, SELFPAY | PROVIDERS: PCP Family Medicine; Visit Provider Internal Medicine | DX: R06.83 Snoring (principal) | CPT/HCPCS: 95806 ==

== ENCOUNTER → 2024-06-08 20:30 | Outpatient (REF) | payer OTHER, SELFPAY | LOC: HO.SL 20:30 | PROVIDERS: Visit Provider Nurse Practitioner Family | DX: G47.33 Obstructive sleep apnea (adult) (pediatric) (principal); R06.83 Snoring; R40.0 Somnolence | CPT/HCPCS: 95810 ==

== ENCOUNTER 2024-12-20 08:58 | Outpatient (AMB) | payer OTHER, SELFPAY ==
--- NOTE | 2024-12-20 09:09 | MHC.PC.OV ---
Vital Signs 12/20/24 09:17 Height 5 ft Weight 180 lb 4 oz BMI 35.2 BP 130/70 Blood Pressure Location Lt brachial Position Sitting Respiration 14 Pulse 68 Pulse Source Pulse Oximeter Temp 97.6 F Temp Source Oral Pulse Oximetry (%) 97 Oxygen Delivery Method Room Air Intake Visit Reasons: CPE with f/u labs and health maint. Intake Note: cpe Is last menstrual period known: No Post menopausal: No Patient : No Allergies adhesive Adverse Reaction (Mild, Verified 12/20/24 09:15) Rash Tobacco use date assessed: 12/16/23 Dental Screening Dental Screen Date: 08/23/23 HPI CPE with f/u labs and health maint. HPI Details Patient?presents?for?complete?physical?exam Recently?diagnosed?with?diabetes?after?delivering?her?child.??She?is?not?taking?metformin?for?this. Patient?would?also?like?to?get?back?on?bupropion.??She?was?on?450?mg?daily. Patient?had?Pap?smear?in?12/18/2023?which?was?negative.??She?says?she?also?had?a?Pap?smear?during?her?. 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 1. Little interest or pleasure in doing things: not at all 2. Feeling down, depressed, or hopeless: not at all 3. Trouble falling or staying asleep, or sleeping too much: not at all 4. Feeling tired or having little energy: not at all 5. Poor appetite or overeating: not at all 6. Feeling bad about yourself - or that you are a failure or have let yourself or your family down: not at all 7. Trouble concentrating on things, such as reading the newspaper or watching television: not at all 8. Moving or speaking so slowly that other people could have noticed. Or the opposite - being so fidgety or restless that you have been moving around a lot more than usual: not at all 9. Thoughts that you would be better off or of hurting yourself in some way: not at all Total score: 0 Depression Screening Interpretation: Negative Depression Screening Done: Yes Source: Developed by Drs. David Lang, Mamie Bain, Bob Muro and colleagues, with an educational steve from [employer]. Thrive Questionnaire Date Thrive assessed: 12/20/24 I am a: Patient What is your living situation today?: I have a steady place to live Within the past 12 months, did the food you bought not last and you didn't have the money to get more?: Never true Within the past 12 months, did you worry whether your food would run out before you got money to buy more?: Never true Do you have trouble paying for medicines?: No Do you have trouble getting transportation to medical appointments?: No Do you have trouble paying your heating and electricity bill?: No Do you have trouble taking care of your child, family member or friend?: No Do you have trouble with day-to-day activities such as bathing, preparing meals, shopping, managing finances, etc.?: No Are you currently unemployed and looking for a job?: No Are you interested in more education?: No Please select the resources that you would like help with: None Currently or been in a relationship where the following occur: No concerns reported THRIVE Score: 0 AUDIT C Alcohol Use Questionnaire (AUDIT-C) 1. How often do you have a drink containing alcohol?: Never 3. How often do you have six or more drinks on one occasion?: Never Total Score: 0 MARILYN-7 AMB Questionnaire MARILYN-7 Date MARILYN - 7 assessed: 12/20/24 Feeling nervous, anxious, or on edge: 1 = Several days Not being able to stop or control worryin = Several days Worrying too much about different things: 1 = Several days Trouble relaxin = Not at all Being so restless that it is hard to sit still: 0 = Not at all Becoming easily annoyed or irritable: 0 = Not at all Feeling afraid as if something awful might happen: 1 = Several days Total MARILYN-7 score (0-4 normal; 5-9 mild; 10-14 moderate; 15-21 severe): 4 Source: Developed by Drs. David Lang, Mamie Bain, Bob Muro and colleagues, with an educational steve from [employer]. MARILYN-7 Assessment Billing MARILYN-7 Assessment Tool: MARILYN-7 Assessment 73576 Review of Systems Const Denies chills, Denies fatigue, Denies fever(s), Denies headache(s) and Denies weakness Eyes Denies change in vision ENT Denies dizziness and Denies headache(s) Card Denies chest pain, Denies lightheadedness, Denies dyspnea and Denies other (Palpitations) Resp Denies cough, Denies dyspnea, Denies wheezing and Denies other ( shortness of breath) GI Denies abdominal pain, Denies melena, Denies hematochezia, Denies change in bowel habits, Denies dyspepsia and Denies nausea Denies hematuria and Denies dysuria Musc Denies numbness and Denies tingling Skin/Breast Denies rash, Denies unusual bruising and Denies wounds Neuro Denies dizziness, Denies headache(s), Denies numbness, Denies Sensory deficit (Neuro), Denies tingling, Denies paresthesias and Denies weakness Psych Denies anxiety and Denies depression Endo Denies fatigue Liam/Lymph Denies easy bleeding and Denies easy bruising Aller/Immun Denies wheezing Physical exam (Primary Care) Tobacco/Smoking Status: Tobacco use Status Tobacco use date assessed 12/16/23 08/12/24 09:08 Patient Tobacco Use Status Former Tobacco user 08/12/24 09:08 e-Cigarette/Vaping Use Currently Using 08/12/24 09:08 Depression Screening Interpretation: Negative Currently or been in a relationship where the following occur: No concerns reported Const General: no acute distress and well developed Nutritional Appearance: well nourished Orientation/consciousness: patient oriented x3 [facility] Head: Yes normocephalic and Yes atraumatic Ears: hearing grossly normal bilaterally and TM's normal bilaterally General nose exam: Normal external nose present and Normal nares present Mouth: Normal oral and palatal mucosa present and moist mucous membranes Teeth and gingiva: dentition normal Throat: Yes posterior oropharynx normal Eyes General: appearance normal, both eyes and all related structures Pupils: Equal, round and reactive pupils present EOM: EOMs intact bilaterally Neck Neck: Yes normal visual inspection, Yes no lymphadenopathy and Yes trachea midline Thyroid: Thyroid normal Carotids: no bruits Lymphatic: no lymphadenopathy noted Chest Chest palpation & inspection: normal inspection of the chest Resp Effort & Inspection: normal respiratory effort Auscultation: clear to auscultation bilaterally Cardio Rate: regular rate Rhythm: regular rhythm Heart sounds: S1 normal heart sound present, S2 normal heart sound present, no gallops, Murmur heart sound present (faint 1/6 systolic murmur, unchanged) and no rubs Bruits: no abdominal aortic bruits and no carotid bruits GI Palpation (GI): No Abdominal aortic bruit present, Soft to palpation, nontender, No hepatosplenomegaly present and No Rebound tenderness present Auscultation: normal bowel sounds General: Yes no CVA tenderness Back/Spine/Pelvis Back: no CVA tenderness Cervical Spine: cervical ROM normal and No Cervical spine tenderness Thoracic/Lumbar Spine: thoraco-lumbar ROM normal, No pain with thoraco-lumbar ROM, No thoracic spinal tenderness and No lumbar spinal tenderness Skin Lesions: no lesions Rashes: no rashes Trauma: no lacerations or abrasions Wounds: no wounds Nails: normal Neuro General: patient oriented x3 and gait normal Cranial nerves: Yes Equal, round and reactive pupils present Cognition (Neuro): normal cognition Gait exam (Neuro): Normal gait present Motor exam (neuro): 5/5 motor strength present throughout Sensory Exam: No Sensory deficit (Neuro) Deep tendon reflexes (DTR's): Right patellar reflex intensity grade: 2+ and Left patellar reflex intensity grade: 2+ Extrem General: Yes normal to inspection and No edema Psych Appearance: grossly normal Affect: normal affect Attitude: cooperative Thought process: Normal thought process present Coding Level of Care Code Est Pt Prev Care 18-39y(76094) Diagnoses Adult general medical exam Z00.00 Diabetes type 2 E11.9 Benign cardiac murmur R01.0 Screening for cervical cancer Z12.4 Additional Codes MARILYN-7 Assessment Billing - MARILYN-7 Assessment Tool: MARILYN-7 Assessment 59474 ([id number]) Assessment & Plan Assessment & Plan (1) Adult general medical exam: Code(s): Z00.00 - Encounter for general adult medical examination without abnormal findings Category: Medical Plan: 29-year-old?female?presents?for?complete?physical?exam Encouraged?healthy?diet?with?active?lifestyle?and?plenty?of?exercise (2) Diabetes type 2: Code(s): E11.9 - Type 2 diabetes mellitus without complications Category: Medical Plan: Now?diagnosed?with?type?2?diabetes?after?childbirth. Encouraged?a?diet?low?in?sugars?and?starches Encouraged?weight?loss?and?exercise Continue?metformin?500?mg?b.i.d. Also?advised?she?call?her?eye?doctor?for?diabetic?retinal?exam?as?she?is?due?for?this (3) Benign cardiac murmur: Code(s): R01.0 - Benign and innocent cardiac murmurs Category: Medical Plan: Unchanged,?benign?murmur (4) Screening for cervical cancer: Code(s): Z12.4 - Encounter for screening for malignant neoplasm of cervix Category: Medical Plan: Pap?smear?negative. Up-to-date Follow-up?with?web machine tender?as?recommended Orders: Orders Microalbumin, Random (w Creat) Today I10 - Essential (primary) hypertension Lipid Panel Today Z00.00 - Encounter for general adult medical examination without abnormal findings TSH reflex Free T4 Today Z00.00 - Encounter for general adult medical examination without abnormal findings Comprehensive [place]. Panel Fast Today Z00.00 - Encounter for general adult medical examination without abnormal findings Complete Blood Count Auto Diff Today Z00.00 - Encounter for general adult medical examination without abnormal findings UA and rflx microscopic Today Z00.00 - Encounter for general adult medical examination without abnormal findings Hemoglobin A1c Today R73.01 - Impaired fasting glucose Medications: New metformin 500 mg PO BID 90 days 180 tabs 3RF bupropion HCl XL 150 mg PO QAM 30 days 30 tabs 3RF
[2024-12-20 09:17] VITALS: BP 130/70; PULSE 68; RESP 14; TEMP 36.4; O2SAT 97; BMI 35.2
--- OUTSIDE RECORDS SUMMARY | 2024-12-20 09:18 | XMS_ITS | Continuity of Care Document ---
Author Organization [facility] Address [address] [place] [address]- Care Team Providers Care Welfare Case Worker Name Role Phone Ana NEGRO, Ayden Ferrell Primary Care Physician Encounter [facility] Date(s): 08/15/24 - 12/14/[address] [address] Attending Physician: Not on Staff, Attending MD Encounter Type: Pre-OutPatient One Time Allergies, Adverse Reactions, Alerts Substance Criticality Severity Reaction Reaction Severity Status Adhesive Bandage Act micah Latex Rash Active Immunizations Given and Recorded Vaccine Date Status Refusal Reason RSV vaccine, preF A-preF B, recombinant 11/03/24 G iven tetanus/diphtheria/pertussis, acel(Tdap) 09/18/24 Given tetanus/diphtheria/pertussis, acel(Tdap) 01/09/22 Recorded influenza virus vaccine, inactivated 09/18/24 Give n Problem List Condition Confirmation Course Effective Dates Status Health St atus Informant H/O Abnormal Pap smear of cervix Confirmed Active BMI 34.0-34.9,adult Confirmed Active H/O Ectopic Confirmed Active Genital HSV Confirmed Active Diabetes, gestational Confirmed Active H/O Varicella as a child Confirmed Active Heart murmur Confirmed Active Itching Confirmed Active Mild preeclampsia Confirmed Active H/O Anxiety and depression Confirmed Active Confirmed Active Social History Social History Type Response Smoking Status Former smoker, quit more than 30 days ago entered on: 12/17/22 Sex Sex Representation Female (finding) Patient Care team information Care Team Personnel Name: Ayden Perez MD Position: [facility] Outreach Member Role: PCP Address: [address] [place] [id number] Telecom: Care Team Related Persons Name: LUIZA QUIROS Name: SAMARA CALLEJAS Name: DAKOTA CALLEJAS Name: ALESSANDRA DUMONT Name: LUIZA SANTOS Insurance Providers Guarantor name: TONIA Health Plan Information #: 1 Payer: [facility] Member Number: [id number] Policy Number: TONIA Group Number: [id number] Health Plan Information #: 2 Payer: [facility] Member Number: [id number] Policy Number: TONIA Group Number: NA
--- OUTSIDE RECORDS SUMMARY | 2024-12-20 09:18 | XMS_ITS | Continuity of Care Document ---
Author Organization [facility] Address [address] [place] [address]- Care Team Providers Care Solution Advisor Name Role Phone Ana NEGRO, Ayden Ferrell Primary Care Physician [phone] Encounter [facility] Date(s): 11/01/24 - 12/01/[address] [address] Encounter Type: Triage Allergies, Adverse Reactions, Alerts Substance Criticality Severity [...] Team Personnel Name: Ayden Perez MD Position: [facility] Outreach Member Role: PCP Address: [address] [place] [address] Telecom: Care Team Related Persons Name: LUIZA QUIROS Name: SAMARA CALLEJAS Name: DAKOTA CALLEJAS Name: ALESSANDRA DUMONT Name: LUIZA SANTOS Insurance Providers Guarantor name: TONIA Health Plan Information #: 1 Payer: [facility] Member Number: NA Policy Number: NA Group Number: NA
--- OUTSIDE RECORDS SUMMARY | 2024-12-20 09:18 | XMS_ITS | Continuity of Care Document ---
Author Organization [facility] Address [address] [place] [address]- Care Team Providers Care Driver Material Handler Name Role Phone Ana NEGRO, Ayden Ferrell Primary Care Physician Encounter [facility] Date(s): 11/01/24 - 12/01/24 [facility] [address] [place] [address] Encounter Type: Triage Allergies, Adverse Reactions, Alerts [...] Team Personnel Name: Ayden Perez MD Position: S Outreach Member Role: PCP Address: [address] [place] [address] Telecom: Care Team Related Persons Name: LUIZA QUIROS Name: SAMARA CALLEJAS Name: DAKOTA CALLEJAS Name: ALESSANDRA DUMONT Name: LUIZA SANTOS Insurance Providers Guarantor name: TONIA Health Plan Information #: 1 Payer: [facility] Member Number: NA Policy Number: NA Group Number: NA
--- OUTSIDE RECORDS SUMMARY | 2024-12-20 09:18 | XMS_ITS | Continuity of Care Document ---
Author Organization [facility] Address [address] [place] [address]- Care Team Providers Care Air Intercept Controller Name Role Phone Ana NEGRO, Ayden Ferrell Primary Care Physician [id number] Date(s): 10/30/24 - 11/29/[address] [address] Encounter Type: Triage Allergies, Adverse [...] Position: S Outreach Member Role: PCP Address: [address] [place] [address] Telecom: Care Team Related Persons Name: LUIZA QUIROS Name: JUNE CALLEJAS GIRL Name: SAMARA CALLEJAS Name: DAKOTA CALLEJAS Name: LUIZA SANTOS Insurance Providers Guarantor name: TONIA Health Plan Information #: 1 Payer: [facility] Member Number: NA Policy Number: NA Group Number: NA
--- OUTSIDE RECORDS SUMMARY | 2024-12-20 09:18 | XMS_ITS | Continuity of Care Document ---
Author Organization [facility] Address [address] [place] [address]- Care Team Providers Care Elder Counselor Name Role Phone Ana NEGRO, Ayden Ferrell Primary Care Physician [phone] Encounter [facility] Date(s): 11/13/24 - 12/13/24 [facility] [address] [place] [address] Attending Physician: Rayshawn Flanagan Admitting Physician: Rayshawn Flanagan Referring Physician: Rayshawn Flanagan Encounter Type: Triage Allergies, Adverse Reactions, Alerts [...] Team Personnel Name: Ayden Perez MD Position: [facility] Outreach Member Role: PCP Address: [address] [place] [id number] Telecom: Care Team Related Persons Name: LUIZA QUIROS Name: SAMARA CALLEJAS Name: DAKOTA CALLEJAS Name: ALESSANDRA DUMONT Name: LUIZA SANTOS Insurance Providers Guarantor name: TNOIA Health Plan Information #: 1 Payer: [facility] Member Number: TONIA Policy Number: TONIA Group Number: TONIA
--- OUTSIDE RECORDS SUMMARY | 2024-12-20 09:18 | XMS_ITS | Continuity of Care Document ---
Author Organization [facility] Address [address] [place] [address]- Care Team Providers Care Executive Vice President Of Sales Name Role Phone Ana NEGRO, Ayden Ferrell Primary Care Physician Encounter [facility] Date(s): 10/23/24 - 11/22/[address] [address] Encounter Type: Triage Allergies, [...] Team Personnel Name: Ayden Perez MD Position: [facility] Outreach Member Role: PCP Address: [address] [place] [id number] Telecom: Care Team Related Persons Name: LUIZA QUIROS Name: JUNE CALLEJAS GIRL Name: SAMARA CALLEJAS Name: DAKOTA CALLEJAS Name: LUIZA SANTOS Insurance Providers Guarantor name: TONIA Health Plan Information #: 1 Payer: [facility] Member Number: NA Policy Number: NA Group Number: NA
--- OUTSIDE RECORDS SUMMARY | 2024-12-20 09:18 | XMS_ITS | Continuity of Care Document ---
Author Organization [facility] Address [address] [place] [address]- Care Team Providers Care Gravure Press Set Up Operator Name Role Phone Ana NEGRO, Ayden Ferrell Primary Care Physician Encounter [facility] Date(s): 10/25/24 - 11/24/24 [facility] [address] [place] [address] Encounter Type: Triage Allergies, Adverse Reactions, Alerts [...] Team Personnel Name: Ayden Perez MD Position: [facility] Outreach Member Role: PCP Address: [address] [place] [address] Telecom: Care Team Related Persons Name: LUIZA QUIROS Name: JUNE CALLEJAS GIRL Name: SAMARA CALLEJAS Name: DAKOTA CALLEJAS Name: LUIZA SANTOS Insurance Providers Guarantor name: TONIA Health Plan Information #: 1 Payer: [facility] Member Number: NA Policy Number: NA Group Number: NA
--- OUTSIDE RECORDS SUMMARY | 2024-12-20 09:18 | XMS_ITS | Continuity of Care Document ---
Author Organization [facility] Address [address] [place] [address]- Care Team Providers Care Paper Feeder Name Role Phone Ana NEGRO, Ayden Ferrell Primary Care Physician [place] [facility] Date[place] 11/01/24 - 12/07/[address] [address] Attending Physician: Tiffanie Larkin MD Admitting Physician: Tiffanie Larkin MD Referring Physician: Ashely Persaud MD Encounter Type: Pre-OutPatient One Time Allergies, [...] Care team information Care Team Personnel Name: Ana NEGRO , Ayden Ferrell Position: S Outreach Member Role: PCP Address: [address] [place] [address] Telecom: Care Team Related Persons Name: LUIZA QUIROS Name: SAMARA CALLEJAS Name: DAKOTA CALLEJAS Name: ALESSANDRA DUMONT Name: LUIZA SANTOS Insurance Providers Guarantor name: TONIA Health Plan Information #: 1 Payer: [facility] Member Number: [id number] Policy Number: NA Group Number: [id number] Health Plan Information #: 2 Payer: [facility] Member Number: [id number] Policy Number: TONIA Group Number: NA
--- OUTSIDE RECORDS SUMMARY | 2024-12-20 09:18 | XMS_ITS | Continuity of Care Document ---
Author Organization [facility] Address [address] [place] [address]- Care Team Providers Care General Claims Agent Name Role Phone Ana NEGRO, Ayden Ferrell Primary Care Physician [phone] Encounter [facility] ACCT R [id number] Date(s): 11/04/24 - 12/10/[address] [address]- Attending Physician: Tiffanie Larkin MD Admitting Physician: [...] Team Personnel Name: Ayden Perez MD Position: [facility] Outreach Member Role: PCP Address: [address] [place] [address] Telecom: Care Team Related Persons Name: LUIZA QUIROS Name: SAMARA CALLEJAS Name: DAKOTA CALLEJAS Name: ALESSANDRA DUMONT Name: LUIZA SANTOS Insurance Providers Guarantor name: TONIA Health Plan Information #: 1 Payer: [facility] Member Number: [id number] Policy Number: TONIA Group Number: [id number] Health Plan Information #: 2 Payer: [facility] Member Number: [id number] Policy Number: NA Group Number: NA
--- OUTSIDE RECORDS SUMMARY | 2024-12-20 09:18 | XMS_ITS | Continuity of Care Document ---
Author Organization [facility] Address [address] [place] [address]- Care Team Providers Care Transfer Controller Name Role Phone Ana NEGRO, Ayden Ferrell Primary Care Physician Encounter [facility] Date(s): 10/31/24 - 12/13/24 [facility] [address] [place] [address] Attending Physician: Mary Sinclair NP Admitting Physician: Mary Sinclair NP Referring Physician: Henny Hicks CNM Encounter Type: Pre-OutPatient One Time Allergies, Adverse [...] Position: S Outreach Member Role: PCP Address: [address] [place], [place] [address] Telecom: Care Team Related Persons Name: LUIZA QUIROS Name: SAMARA CALLEJAS Name: DAKOTA CALLEJAS Name: ALESSANDRA DUMONT Name: LUIZA SANTOS Insurance Providers Guarantor name: TONIA Health Plan Information #: 1 Payer: [facility] Member Number: [id number] Policy Number: NA Group Number: [id number] Health Plan Information #: 2 Payer: [facility] Member Number: [id number] Policy Number: NA Group Number: NA
--- OUTSIDE RECORDS SUMMARY | 2024-12-20 09:18 | XMS_ITS | Continuity of Care Document ---
Author Organization [facility] Address [address] [place] [address]- Care Team Providers Care Casino Runner Name Role Phone Ana NEGRO, Ayden Ferrell Primary Care Physician Encounter [facility] Date(s): 10/24/24 - 11/23/24 [facility] [address] [place] [email or web address] Attending Physician: Rayshawn Flanagan Admitting Physician: Rayshawn [...] Team Personnel Name: Ayden Perez MD Position: [facility] Outreach Member Role: PCP Address: [address] [place] [email or web address] Telecom: Care Team Related Persons Name: LUIZA QUIROS Name: JUNE CALLEJAS GIRL Name: SAMARA CALLEJAS Name: DAKOTA CALLEJAS Name: LUIZA SANTOS Insurance Providers Guarantor name: TONIA Health Plan Information #: 1 Payer: [facility] Member Number: NA Policy Number: NA Group Number: NA
== END 2024-12-20 09:43 | disposition home or self-care (01) ==
PROVIDERS: PCP Family Medicine; Visit Provider Family Medicine
DX: Z00.00 Encounter for general adult medical examination without abnormal findings (principal); E11.9 Type 2 diabetes mellitus without complications; R01.0 Benign and innocent cardiac murmurs; Z12.4 Encounter for screening for malignant neoplasm of cervix

== ENCOUNTER → 2024-12-20 08:58 | Outpatient (BNVA) | payer OTHER, SELFPAY | PROVIDERS: PCP Family Medicine; Visit Provider Family Medicine | DX: Z00.00 Encounter for general adult medical examination without abnormal findings (principal); E11.9 Type 2 diabetes mellitus without complications; R01.0 Benign and innocent cardiac murmurs; Z79.84 Long term (current) use of oral hypoglycemic drugs | CPT/HCPCS: 96127 ==

== ENCOUNTER 2024-12-25 11:15 | Outpatient (REF) | payer OTHER, SELFPAY ==
[2024-12-25 13:14] LABS: MANUAL DIFF FLAG NO
[2024-12-25 13:18] LABS: Appearance Urine Cloudy; Color Urine Yellow; Glucose Urine UA Negative (Negative); Leukocyte Esterase Urine Trace (Negative); Nitrite Urine Negative (Negative); UMIC TRIGGER UA YES; Urine Blood Negative (Negative); Urine Ketones Negative (Negative); Urine Protein Negative (Neg-Trace)
[2024-12-25 13:28] LABS: Basophils Percent Auto 0.3 % (0-2); Eosinophils Absolute Auto 0.1 X10*3/uL (0.0-0.4); Eosinophils Percent Auto 1.1 % (0-4); Estimated Average Glucose 117 mg/dL; Hematocrit 36.9 % (37.0-47.0); Hemoglobin 11.6 g/dl (12.0-16.0); Hemoglobin A1C 112.8686 umol/L; Hemoglobin A1c % 5.7 % (<6.0); Imm Gran Abs Auto 0.03 X10*3/uL (0.00-0.03); Imm Gran Pct Auto 0.5 % (0.0-0.4); Lymphocytes Absolute Auto 1.7 X10*3/uL (1.2-4.9); Lymphocytes Percent Auto 25.3 % (20-40); Mean Corpuscular HGB Conc 31.4 g/dl (31.0-35.0); Mean Corpuscular Hemoglobin 25.1 pg (27.0-33.0); Mean Corpuscular Volume 79.7 fL (80.0-98.0); Mean Platelet Volume 11.2 fL (9.4-12.3); Monocytes Absolute Auto 0.3 X10*3/uL (0.1-1.2); Monocytes Percent Auto 4.5 % (2-11); Neutrophils Absolute Auto 4.5 x10*3/uL (2.0-8.3); Neutrophils Percent Auto 68.3 % (45-73); Platelet Count 347 X10*3/uL (160-400); Red Blood Count 4.63 X10*6/uL (4.20-5.50); Red Cell Distribution Width 14.2 % (11.0-16.0); Total Hemoglobin (HGBA1C) 2926.0538 umol/L; White Blood Count 6.6 X10*3/uL (4.8-10.8)
[2024-12-25 13:39] LABS: Bacteria Urine Trace (None Seen); Hyaline Casts Urine 0-2 /LPF (0-2); RBC Urine 0-2 /HPF (0-2)
[2024-12-25 13:53] LABS: Creatinine Urine 74.54 mg/dL; Microalbum/Creatinine Ratio Ur 29.5 ug/mg cr (<30)
[2024-12-25 13:58] LABS: Alanine Aminotransferase 36 U/L (0-31); Albumin Level 4.2 g/dL (3.5-5.0); Alkaline Phosphatase 60 U/L (39-117); Anion Gap 11 (12-20); Aspartate Amino Transferase 23 U/L (5-31); Bilirubin Total 0.4 mg/dL (0.0-1.0); Blood Urea Nitrogen 9 mg/dL (9-16); Calcium 9.4 mg/dL (8.4-10.2); Carbon Dioxide 26 mmol/L (22-29); Chloride 105 mmol/L (96-108); Cholesterol 175 mg/dL (<200); Estimated Glomerular Filt Rate > 60; Glucose Fasting 104 mg/dL (60-99); HDL Cholesterol 30 mg/dL (>40); LDL Cholesterol Calculated 112 mg/dL (<100); Potassium 4.2 mmol/L (3.3-5.1); Sodium 138 mmol/L (135-145); Total Protein 7.3 g/dL (6.5-8.0); Triglycerides 168 mg/dL (<150)
[2024-12-25 14:15] LABS: TSH reflex Free T4 0.82 uIU/mL (0.32-4.0)
--- OUTSIDE RECORDS SUMMARY | 2024-12-25 16:08 | XMS_ITS | Continuity of Care Document ---
Author Organization [facility] Address [address] [place] [id number]- Care Team Providers Care Argon Tester Name Role Phone Ana NEGRO, Ayden Ferrell Primary Care Physician [place] [facility] [place] [id number] Date(s): 08/26/24 - 12/24/[address] [id number] Attending Physician: Not on Staff, Attending MD [...] Team Personnel Name: Ayden Perez MD Position: [facility] Outreach Member Role: PCP Address: [address] [place] [id number] Telecom: Care Team Related Persons Name: LUIZA QUIROS Name: SAMARA CALLEJAS Name: DAKOTA CALLEJAS Name: ALESSANDRA DUMONT Name: LUIZA SANTOS Insurance Providers Guarantor name: TONIA Health Plan Information #: 1 Payer: [facility] Member Number: [id number] Policy Number: TONIA Group Number: [id number] Health Plan Information #: 2 Payer: [facility] Member Number: [id number] Policy Number: TONIA Group Number: [id number]
== END 2024-12-25 11:16 | disposition home or self-care (01) ==
LOC: HO.HMGCLDS 11:15
PROVIDERS: PCP Family Medicine; Visit Provider Family Medicine
DX: Z00.00 Encounter for general adult medical examination without abnormal findings (principal); R73.01 Impaired fasting glucose; I10 Essential (primary) hypertension
CPT/HCPCS: 36415; 80053; 80061; 81001; 82043; 82570; 83036; 84443; 85025

== ENCOUNTER → 2025-01-03 13:33 | Outpatient (AMB) | payer OTHER, SELFPAY ==
--- NOTE | 2025-01-03 13:30 | MHC.PC.OV ---
Intake Visit Reasons: F/U blood work Intake Note: Follow up blood work Rehabilitation Medicine Physician Required: No Allergies adhesive Adverse Reaction (Mild, Verified 01/03/25 13:31) Rash Tobacco use date assessed: 01/03/25 Dental Screening Dental Screen Date: 08/23/23 HPI F/U blood work HPI Details Telemedicine?appointment?to?follow-up?lab?work Reviewed?labs?with?patient: Mild?anemia?but?she?says?she?had?had?her??and?had?lost?quite?a?bit?of?blood. Mildly?elevated?ALT Elevated?triglycerides?and?mildly?elevated?LDL?with?low?HDL A1c?5.7%?on?metformin Patient?feels?well.??No?new?complaints. She?has?begun?walking?with?baby?in?a?stroller?to?get?some?exercise. [facility] Medical History (Updated 01/03/25 @ 14:38 by Ayden Perez MD) Diabetes Preeclampsia Complication of section wound No known health problems No known health problems Surgical History History of loop electrosurgical excision procedure (LEEP) History of tonsillectomy Social History (Updated 01/03/25 @ 13:32 by Sarika Ferrer CMA) Housing: Apartment Alcohol intake: former Patient Tobacco Use Status: Former Tobacco user e-Cigarette/Vaping Use: Currently Using Frequency of e-Cigarette/Vaping Use: rarely Substance Use Type: Marijuana service: No Current occupational status: employed 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 David Lang, Mamie Bain, Bob Muro and colleagues, with an educational steve from [employer]. Review of Systems Const Denies chills, Denies fatigue, Denies fever(s), Denies headache(s) and Denies weakness ENT Denies dizziness and Denies headache(s) Card Denies chest pain, Denies lightheadedness, Denies dyspnea and Denies other (Palpitations) Resp Denies cough, Denies dyspnea, Denies wheezing and Denies other ( shortness of breath) Musc Denies numbness and Denies tingling Neuro Denies dizziness, Denies headache(s), Denies numbness, Denies tingling, Denies paresthesias and Denies weakness Psych Denies anxiety and Denies depression Endo Denies fatigue Aller/Immun Denies wheezing Physical exam (Primary Care) Tobacco/Smoking Status: Tobacco use Status Tobacco use date assessed 01/03/25 01/03/25 13:32 Patient Tobacco Use Status Former Tobacco user 01/03/25 13:32 e-Cigarette/Vaping Use Currently Using 01/03/25 13:32 Thrive Assessment: Date of Thrive Assessment Date Thrive assessed 12/20/24 01/03/25 13:30 Telehealth Telehealth Telehealth Platform: Telephone Location of provider rendering services: practice address Location of patient: address on file Patient Identification confirmed using: Name, : Yes Telehealth method: voice only Patient verbally consented to treatment: Yes Patient verbally consented to billing insurance company: Yes Patient informed of any privacy concerns related to visit: Yes Minutes spent on Phone/Video with Pt.: 8 Coding Level of Care Code Tele Est Pt Level 2 (27702) Diagnoses Diabetes type 2 E11.9 Mild anemia D64.9 Hyperlipidemia E78.5 Elevated ALT measurement R74.01 Assessment & Plan Assessment & Plan (1) Diabetes type 2: Code(s): E11.9 - Type 2 diabetes mellitus without complications Category: Medical Plan: A1c?5.7%.??Good?control Continue?diet?low?in?sugars?and?starches Continue?metformin Goal?is?less?than?7% (2) Mild anemia: Code(s): D64.9 - Anemia, unspecified Category: Medical Plan: Mild?anemia?but?patient?has?had??with?blood?loss Will?recheck?this (3) Hyperlipidemia: Code(s): E78.5 - Hyperlipidemia, unspecified Category: Medical Plan: Mild?elevation?in?LDL?cholesterol?and?triglycerides?are?elevated. Mildly?low?HDL Encouraged?lifestyle?changes Will?recheck?with?next?blood?draw (4) Elevated ALT measurement: Code(s): R74.01 - Elevation of levels of liver transaminase levels Category: Medical Plan: Mildly?elevated?ALT Will?recheck?next?blood?draw
--- OUTSIDE RECORDS SUMMARY | 2025-01-03 14:58 | XMS_ITS | Continuity of Care Document ---
Author Organization [facility] Address [address] [place] [id number]- Care Team Providers Care Lining Feller Blindstitch Name Role Phone Ana NEGRO, Ayden Ferrell Primary Care Physician [phone] [place] [facility] [place] [id number] Date(s): 09/02/24 - 12/31/[address] [id number] Attending Physician: Not on Staff, Attending MD [...] [facility] Member Role: PCP Address: [address] [place] [id number] Telecom: Care Team Related Persons Name: LUIZA QUIROS Name: SAMARA CALLEJAS Name: DAKOTA CALLEJAS Name: ALESSANDRA DUMONT Name: LUIZA SANTOS Insurance Providers Guarantor name: TONIA Health Plan Information #: 1 Payer: [facility] Member Number: [id number] Policy Number: TONIA Group Number: [id number] Health Plan Information #: 2 Payer: [facility] Member Number: [id number] Policy Number: TONIA Group Number: [id number]
== END ==
LOC: HO.HMCFM 13:33
PROVIDERS: PCP Family Medicine; Visit Provider Family Medicine
DX: E11.69 Type 2 diabetes mellitus with other specified complication (principal); D64.9 Anemia, unspecified; E78.5 Hyperlipidemia, unspecified; R74.01 Elevation of levels of liver transaminase levels

== ENCOUNTER 2025-03-22 14:29 | Outpatient (AMB) | payer OTHER, SELFPAY ==
--- NOTE | 2025-03-22 14:44 | MHC.PC.OV ---
Vital Signs 03/22/25 14:50 Height 5 ft Weight 173 lb 4 oz BMI 33.8 BP 106/62 Blood Pressure Location Rt brachial Position Sitting Pulse 73 Pulse Source Pulse Oximeter Temp 98.5 F Temp Source Temporal Artery Scan Pulse Oximetry (%) 97 Oxygen Delivery Method Room Air Intake Visit Reasons: SUYAPA from Dr Perez / go over her medications Intake Note: Kely presents in the office today transferring from Dr. Perez for a mediation review. Would like to talk about increasing her Bupropion and changing the Metformin and trying a GLP-1. Allergies adhesive Adverse Reaction (Mild, Verified 03/22/25 14:47) Rash Tobacco use date assessed: 03/22/25 Dental Screening Dental Screen Date: 03/22/25 Did you have a dental visit in the last 12 months?: No Did you have a dental problem in the last 6 months where you did not have access to dental care?: No Was dental information given to patient?: Patient has dentist HPI HPI Comments History of Present Illness Details This is a 29-year-old female with a past medical history of type 2 diabetes, HSV, hyperlipidemia, benign cardiac murmur, family history of early CAD, sleep apnea and anxiety with depression presenting to [facility]. She transferred from another provider at the practice. Type 2 diabetes-patient says she had prediabetes and then developed gestational diabetes during . She was treated with insulin during . She was diagnosed with type 2 diabetes . Her sister is also diabetic. She is overweight with a BMI of 33.8. She was prescribed metformin 500 mg twice a day, but she only takes it 2 days per week due to nausea. She has tried to lose weight by modifying her diet and exercising, but she has not been successful. Her hemoglobin A1c was 5.7% 12/25/2024, but she says at that time she was pushing herself to take the metformin consistently. Her ALT was 36 in November, but her remaining liver function tests were normal. Her LDL cholesterol was 112 with a goal of less than 100. Her triglycerides were 168 and her HDL cholesterol is 30. TSH was normal. Urine was negative for microalbuminuria. She also had mild anemia on labs in November, and she attributed that to blood loss from . She has a healthy daughter now, but she was born premature. Depression and anxiety are treated with Wellbutrin XL 150 mg daily. She was on dosages up to 450 mg prior to , but she stopped it when she found out she was . She does have increased depression symptoms and mild anxiety. She would like to increase the dose. She is not . ROS: Constitutional: No unexplained weight loss, fever, chills or chills. Respiratory: No shortness of breath Cardiovascular: No chest pain Gastrointestinal: No anorexia, vomiting, abdominal pain or blood in stool. Neurologic: No headache, dizziness, syncope, no numbness or tingling in extremities Endocrine: No cold or heat intolerance. No polyuria or polydipsia. Psychiatric: No SI/HI. Physical exam: Constitutional: Alert, in no distress. Neck: Supple, Full range of motion. No lymphadenopathy. No palpable thyroid masses. Respiratory: Clear to auscultation. Cardiovascular: S1 S2 regular. No murmurs. Neurologic: No focal neurological deficits. Extremities: Warm and well perfused. No clubbing, cyanosis or edema. Psychiatric: Normal mood and affect [facility] Medical History (Updated 03/23/25 @ 11:00 by LENY Torres) Class 1 obesity Controlled type 2 diabetes mellitus Diabetes Preeclampsia Complication of section wound No known health problems No known health problems Surgical History History of loop electrosurgical excision procedure (LEEP) History of tonsillectomy Social History (Updated 03/22/25 @ 14:49 by Erica Medina MA) Housing: Apartment Alcohol intake: former Patient Tobacco Use Status: Former Tobacco user e-Cigarette/Vaping Use: Former Use Second Hand Smoke Exposure: No service: No Current occupational status: employed 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 1. Little interest or pleasure in doing things: not at all 2. Feeling down, depressed, or hopeless: not at all 3. Trouble falling or staying asleep, or sleeping too much: not at all 4. Feeling tired or having little energy: not at all 5. Poor appetite or overeating: not at all 6. Feeling bad about yourself - or that you are a failure or have let yourself or your family down: not at all 7. Trouble concentrating on things, such as reading the newspaper or watching television: not at all 8. Moving or speaking so slowly that other people could have noticed. Or the opposite - being so fidgety or restless that you have been moving around a lot more than usual: not at all 9. Thoughts that you would be better off or of hurting yourself in some way: not at all Total score: 0 Depression Screening Interpretation: Negative Depression Screening Done: Yes [address]39 - PHQ-9 Billing: Patient declined-do not bill Source: Developed by Drs. David Lang, Mamie Bain, Bob Muro and colleagues, with an educational steve from [employer]. Thrive Questionnaire Date Thrive assessed: 03/22/25 I am a: Patient What is your living situation today?: I have a steady place to live Within the past 12 months, did the food you bought not last and you didn't have the money to get more?: Never true Within the past 12 months, did you worry whether your food would run out before you got money to buy more?: Never true Do you have trouble paying for medicines?: No Do you have trouble getting transportation to medical appointments?: No Do you have trouble paying your heating and electricity bill?: No Do you have trouble taking care of your child, family member or friend?: No Do you have trouble with day-to-day activities such as bathing, preparing meals, shopping, managing finances, etc.?: No Are you currently unemployed and looking for a job?: No Are you interested in more education?: No Please select the resources that you would like help with: None Currently or been in a relationship where the following occur: No concerns reported THRIVE Score: 0 AUDIT C Alcohol Use Questionnaire (AUDIT-C) 1. How often do you have a drink containing alcohol?: Never Total Score: 0 Score Reviewed/Action Taken: No MARILYN-7 AMB Questionnaire MARILYN-7 Date MARILYN - 7 assessed: 03/22/25 Feeling nervous, anxious, or on edge: 0 = Not at all Not being able to stop or control worryin = Not at all Worrying too much about different things: 0 = Not at all Trouble relaxin = Not at all Being so restless that it is hard to sit still: 0 = Not at all Becoming easily annoyed or irritable: 0 = Not at all Feeling afraid as if something awful might happen: 0 = Not at all Total MARILYN-7 score (0-4 normal; 5-9 mild; 10-14 moderate; 15-21 severe): 0 Source: Developed by Drs. David Lang, Mamie Bain, Bob Muro and colleagues, with an educational steve from [employer]. MARILYN-7 Assessment Billing MARILYN-7 Assessment Tool: MARILYN-7 Assessment 74431 ACT Questionnaire In the past 4 weeks, how much of the time did your asthma keep you from getting as much done at work, school or at home?: None of the time Score: 5 Physical exam (Primary Care) Vital Signs: Last Vital Signs Temp 98.5 F 03/22/25 14:50 Pulse 73 03/22/25 14:50 BP 106/62 03/22/25 14:50 Pulse Ox 97 03/22/25 14:50 Oxygen Delivery Method Room Air 03/22/25 14:50 BMI result Body Mass Index 33.8 Tobacco/Smoking Status: Tobacco use Status Tobacco use date assessed 03/22/25 03/22/25 14:54 Patient Tobacco Use Status Former Tobacco user 03/22/25 14:49 e-Cigarette/Vaping Use Former Use 03/22/25 14:54 PHQ-9: PHQ-9 Score PHQ-9: Total score 0 03/22/25 14:54 Depression Screening Interpretation: Negative Thrive Assessment: Date of Thrive Assessment Date Thrive assessed 03/22/25 03/22/25 14:54 Currently or been in a relationship where the following occur: No concerns reported Coding Level of Care Code Est Pt Level 4 (66995) Complex EM visit Add On G2211 Diagnoses Controlled type 2 diabetes mellitus without complication, without long-term current use of insulin E11.9 Diabetes mellitus retirement insulin use: without retirement use Diabetes mellitus complication status: without complication Class 1 obesity E66.811 Mild anemia D64.9 Elevated ALT measurement R74.01 Anxiety with depression F41.8 Additional Codes MARILYN-7 Assessment Billing - MARILYN-7 Assessment Tool: MARILYN-7 Assessment 32636 ([id number]) Assessment & Plan Assessment & Plan (1) Controlled type 2 diabetes mellitus: Code(s): E11.9 - Type 2 diabetes mellitus without complications Category: Medical Qualifiers: Diabetes mellitus retirement insulin use: without medical terminologist use Diabetes mellitus complication status: without complication Qualified Code(s): E11.9 - Type 2 diabetes mellitus without complications Plan: We discussed the complications of type 2 diabetes. We discussed lifestyle modifications and diet recommendations. She will consider referral to primary special educator/dietitian. Ordered labs with the patient. Her LDL is above goal. She is working on lifestyle modifications, and we are going to start GLP 1 to help with weight loss. If this does not prove we will discuss starting a statin. Discontinue metformin. Trial of Mounjaro 2.5 mg weekly. She denies contraindications to this type of medication. We reviewed potential side effects, titration based on efficacy and tolerability. She has a glucometer, but she does not check blood sugars regularly. This is recommended. (2) Class 1 obesity: Code(s): E66.811 - Obesity, class 1 Category: Medical Plan: See above notes. (3) Mild anemia: Code(s): D64.9 - Anemia, unspecified Category: Medical Plan: This may have been due to blood loss from her . Recheck CBC. (4) Elevated ALT measurement: Code(s): R74.01 - Elevation of levels of liver transaminase levels Category: Medical Plan: Repeat labs. (5) Anxiety with depression: Code(s): F41.8 - Other specified anxiety disorders Category: Medical Plan: Declines referral to behavioral health. Increase bupropion XL to 300 mg daily. Black box warning and side effects reviewed. Plan Follow up in 1 month. Orders: Orders Lipid Panel 03/22/25 E11.9 - Type 2 diabetes mellitus without complications, E78.5 - Hyperlipidemia, unspecified Hemoglobin A1c 03/22/25 E11.9 - Type 2 diabetes mellitus without complications Comprehensive Met. Panel 03/22/25 E11.9 - Type 2 diabetes mellitus without complications Complete Blood Count no Diff 03/22/25 E11.9 - Type 2 diabetes mellitus without complications Medications: New tirzepatide (Mounjaro) for 4 weeks 2.5 mg (0.5 mL) subcut QWEEK 2 mL 0RF bupropion HCl XL 300 mg PO QAM 30 tabs 1RF Discontinued metformin Discontinued Reason: Doctor's Order 500 mg PO BID 90 days 180 tabs 3RF bupropion HCl XL Discontinued Reason: Doctor's Order 150 mg PO QAM 30 days 30 tabs 3RF
[2025-03-22 14:50] VITALS: BP 106/62; PULSE 73; TEMP 36.9; O2SAT 97; BMI 33.8
== END 2025-03-22 15:20 | disposition home or self-care (01) ==
PROVIDERS: PCP Physician Assistant Medical; Visit Provider Physician Assistant Medical
DX: E11.9 Type 2 diabetes mellitus without complications (principal); E66.811 Obesity, class 1; Z68.33 Body mass index [BMI] 33.0-33.9, adult; D64.9 Anemia, unspecified; R74.01 Elevation of levels of liver transaminase levels; F41.8 Other specified anxiety disorders

== ENCOUNTER → 2025-03-22 14:29 | Outpatient (BNVA) | payer OTHER, SELFPAY | PROVIDERS: PCP Physician Assistant Medical; Visit Provider Physician Assistant Medical | DX: E11.9 Type 2 diabetes mellitus without complications (principal); E66.811 Obesity, class 1; D64.9 Anemia, unspecified; R74.01 Elevation of levels of liver transaminase levels; F41.8 Other specified anxiety disorders | CPT/HCPCS: 96127; 99212 ==

== ENCOUNTER 2025-04-03 09:39 | Outpatient (REF) | payer OTHER, SELFPAY ==
[2025-04-03 13:50] LABS: Hemoglobin 11.4 g/dl (12.0-16.0); Mean Corpuscular HGB Conc 30.8 g/dl (31.0-35.0); Mean Corpuscular Hemoglobin 23.7 pg (27.0-33.0); Mean Corpuscular Volume 76.9 fL (80.0-98.0); Mean Platelet Volume 11.3 fL (9.4-12.3); Platelet Count 331 X10*3/uL (160-400); Red Blood Count 4.81 X10*6/uL (4.20-5.50); Red Cell Distribution Width 17.5 % (11.0-16.0); White Blood Count 8.1 X10*3/uL (4.8-10.8)
[2025-04-03 13:57] LABS: Estimated Average Glucose 114 mg/dL; Hemoglobin A1C 113.0195 umol/L; Hemoglobin A1c % 5.6 % (<6.0); Total Hemoglobin (HGBA1C) 3010.0282 umol/L
[2025-04-03 15:09] LABS: Alanine Aminotransferase 16 U/L (0-31); Albumin Level 4.3 g/dL (3.5-5.0); Anion Gap 10 (12-20); Aspartate Amino Transferase 18 U/L (5-31); Bilirubin Total 0.4 mg/dL (0.0-1.0); Blood Urea Nitrogen 12 mg/dL (9-16); Calcium 9.1 mg/dL (8.4-10.2); Carbon Dioxide 27 mmol/L (22-29); Chloride 104 mmol/L (96-108); Cholesterol 169 mg/dL (<200); Estimated Glomerular Filt Rate > 60; Glucose Random 108 mg/dL (60-115); HDL Cholesterol 33 mg/dL (>40); LDL Cholesterol Calculated 109 mg/dL (<100); Potassium 4.4 mmol/L (3.3-5.1); Sodium 137 mmol/L (135-145); Total Protein 6.9 g/dL (6.5-8.0); Triglycerides 136 mg/dL (<150)
[2025-04-03 18:00] LABS: Alkaline Phosphatase 52 U/L (39-117)
== END 2025-04-03 09:40 | disposition home or self-care (01) ==
LOC: HO.HMGCLDS 09:39
PROVIDERS: PCP Physician Assistant Medical; Visit Provider Physician Assistant Medical
DX: E11.9 Type 2 diabetes mellitus without complications (principal); E78.5 Hyperlipidemia, unspecified
CPT/HCPCS: 36415; 80053; 80061; 83036; 85027

== ENCOUNTER 2025-04-26 13:46 | Outpatient (AMB) | payer OTHER, SELFPAY ==
--- NOTE | 2025-04-26 13:48 | MHC.PC.OV ---
Vital Signs 04/26/25 13:54 Height 5 ft Weight 178 lb 6 oz BMI 34.8 BP 102/74 Blood Pressure Location Rt brachial Position Sitting Respiration 14 Pulse 78 Pulse Source Pulse Oximeter Temp 98.6 F Temp Source Temporal Artery Scan Pulse Oximetry (%) 99 Oxygen Delivery Method Room Air Intake Visit Reasons: med check Intake Note: Kely presents in the office today for a medication check in. Allergies adhesive Adverse Reaction (Mild, Verified 04/26/25 13:52) Rash Tobacco use date assessed: 04/26/25 Dental Screening Dental Screen Date: 04/26/25 Did you have a dental visit in the last 12 months?: No Did you have a dental problem in the last 6 months where you did not have access to dental care?: No Was dental information given to patient?: Yes HPI HPI Comments History of Present Illness Details This is a 29-year-old female with a past medical history of type 2 diabetes, HSV, hyperlipidemia, benign cardiac murmur, family history of early CAD, sleep apnea and anxiety with depression presenting for follow up. Type 2 diabetes-patient says she had prediabetes and then developed gestational diabetes during . She was treated with insulin during . She was diagnosed with type 2 diabetes , but her hemoglobin A1c is down to 5.6%, and this is off of metformin. She had only been taking metformin at most twice a week because it caused nausea. Her insurance does not cover it GLP 1 since her A1c is normal now. We reviewed her lab results. Her ALT normalized. Triglycerides normalized. HDL cholesterol is 109, and her HDL cholesterol increase to 33. Her sister is also diabetic. She is overweight with a BMI of 33.8. She was prescribed metformin 500 mg twice a day, but she only takes it 2 days per week due to nausea. She has tried to lose weight by modifying her diet and exercising, but she has not been successful. Her hemoglobin A1c was 5.7% 12/25/2024, but she says at that time she was pushing herself to take the metformin consistently. Her ALT was 36 in November, but her remaining liver function tests were normal. Her LDL cholesterol was 112 with a goal of less than 100. Her triglycerides were 168 and her HDL cholesterol is 30. TSH was normal. She also had mild anemia on labs in November, and she attributed that to blood loss from . She has a healthy daughter now, but she was born premature. Patient still has mild anemia though it did improve. No excessive bleeding or bruising. Menses normal. Depression and anxiety -she restarted Wellbutrin, but she had headache so she stopped it. She is wondering if she has ADHD. She gets sidetracked frequently, she is forgetful and does not finish projects she starts. She struggled in school. Reports anxiety is under control at this point. Acknowledges she has depression, but but she denies significant symptoms. ROS: Constitutional: No unexplained weight loss, fever, chills or chills. Respiratory: No shortness of breath Cardiovascular: No chest pain Gastrointestinal: No anorexia, vomiting, abdominal pain or blood in stool. Neurologic: No headache, dizziness, syncope, no numbness or tingling in extremities Endocrine: No cold or heat intolerance. No polyuria or polydipsia. Psychiatric: No SI/HI. Physical exam: Constitutional: Alert, in no distress. Neck: Supple, Full range of motion. No lymphadenopathy. No palpable thyroid masses. Respiratory: Clear to auscultation. Cardiovascular: S1 S2 regular. No murmurs. Neurologic: No focal neurological deficits. Extremities: Warm and well perfused. No clubbing, cyanosis or edema. Psychiatric: Normal mood and affect [facility] Medical History (Updated 04/26/25 @ 14:29 by LENY Torres) Concentration deficit Pre-diabetes History of prediabetes Snoring Faint heart murmur Obesity Diabetes type 2 Elevated ALT measurement Class 1 obesity Controlled type 2 diabetes mellitus Diabetes Preeclampsia Complication of section wound No known health problems No known health problems Surgical History History of loop electrosurgical excision procedure (LEEP) History of tonsillectomy Social History (Updated 04/26/25 @ 13:49 by Erica Medina MA) Housing: Apartment Alcohol intake: former Patient Tobacco Use Status: Former Tobacco user e-Cigarette/Vaping Use: Former Use Second Hand Smoke Exposure: No service: No Current occupational status: employed 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 1. Little interest or pleasure in doing things: several days 2. Feeling down, depressed, or hopeless: several days 3. Trouble falling or staying asleep, or sleeping too much: more than half the days 4. Feeling tired or having little energy: several days 5. Poor appetite or overeating: several days 6. Feeling bad about yourself - or that you are a failure or have let yourself or your family down: not at all 7. Trouble concentrating on things, such as reading the newspaper or watching television: not at all 8. Moving or speaking so slowly that other people could have noticed. Or the opposite - being so fidgety or restless that you have been moving around a lot more than usual: not at all 9. Thoughts that you would be better off or of hurting yourself in some way: not at all Total score: 6 Depression Screening Interpretation: Positive Depression Screening Done: Yes 35785 - PHQ-9 Billing: Yes Source: Developed by Drs. David Lang, Mamie Bain, Bob Muro and colleagues, with an educational steve from [employer]. Thrive Questionnaire Date Thrive assessed: 04/26/25 I am a: Patient What is your living situation today?: I have a steady place to live Within the past 12 months, did the food you bought not last and you didn't have the money to get more?: Never true Within the past 12 months, did you worry whether your food would run out before you got money to buy more?: Never true Do you have trouble paying for medicines?: No Do you have trouble getting transportation to medical appointments?: No Do you have trouble paying your heating and electricity bill?: No Do you have trouble taking care of your child, family member or friend?: No Do you have trouble with day-to-day activities such as bathing, preparing meals, shopping, managing finances, etc.?: No Are you currently unemployed and looking for a job?: No Are you interested in more education?: No Please select the resources that you would like help with: None Currently or been in a relationship where the following occur: No concerns reported THRIVE Score: 0 AUDIT C Alcohol Use Questionnaire (AUDIT-C) 1. How often do you have a drink containing alcohol?: Never Total Score: 0 MARILYN-7 AMB Questionnaire MARILYN-7 Date MARILYN - 7 assessed: 04/26/25 Source: Developed by Drs. David Lang, Mamie Bain, Bob Muro and colleagues, with an educational steve from [employer]. Physical exam (Primary Care) Vital Signs: Last Vital Signs Temp 98.6 F 04/26/25 13:54 Pulse 78 04/26/25 13:54 Resp 14 04/26/25 13:54 BP 102/74 04/26/25 13:54 Pulse Ox 99 04/26/25 13:54 Oxygen Delivery Method Room Air 04/26/25 13:54 BMI result Body Mass Index 34.8 Tobacco/Smoking Status: Tobacco use Status Tobacco use date assessed 04/26/25 04/26/25 13:50 Patient Tobacco Use Status Former Tobacco user 04/26/25 13:50 e-Cigarette/Vaping Use Former Use 04/26/25 13:50 PHQ-9: PHQ-9 Score PHQ-9: Total score 6 04/26/25 13:59 Depression Screening Interpretation: Positive Thrive Assessment: Date of Thrive Assessment Date Thrive assessed 04/26/25 04/26/25 13:58 Currently or been in a relationship where the following occur: No concerns reported Coding Level of Care Code Est Pt Level 4 (04622) Complex EM visit Add On G2211 Diagnoses Controlled type 2 diabetes mellitus without complication, without long-term current use of insulin E11.9 Diabetes mellitus complication status: without complication Diabetes mellitus prison insulin use: without termite control technician use Class 1 obesity E66.811 Mild anemia D64.9 Anxiety with depression F41.8 Hyperlipidemia E78.5 Concentration deficit R41.840 Additional Codes PHQ-9 - 66879 - PHQ-9 Billing: Yes ([id number]) Assessment & Plan Assessment & Plan (1) Controlled type 2 diabetes mellitus: Code(s): E11.9 - Type 2 diabetes mellitus without complications Category: Medical Qualifiers: Diabetes mellitus complication status: without complication Diabetes mellitus termite 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 Continue lifestyle modifications. Recheck in 3 months. She has a glucometer. Recommended low carbohydrate, low sugar diet. Avoid alcohol. (2) Class 1 obesity: Code(s): E66.811 - Obesity, class 1 Category: Medical Plan: Recommended decreasing portion sizes and regular exercise to promote weight loss. Insurance did not cover GLP 1. (3) Mild anemia: Code(s): D64.9 - Anemia, unspecified Category: Medical Plan: Increase iron rich foods in diet. Recheck labs before next appointment. Call if there is worsening fatigue or weakness. (4) Anxiety with depression: Code(s): F41.8 - Other specified anxiety disorders Category: Medical Plan: Patient reports anxiety and depression are currently under control. Declines referral for counseling. (5) Hyperlipidemia: Code(s): E78.5 - Hyperlipidemia, unspecified Category: Medical Plan: Optimal LDL less than 100. This has improved. HDL increase. Reviewed lifestyle modifications with the patient. Recheck prior to next appointment. (6) Concentration deficit: Code(s): R41.840 - Attention and concentration deficit Category: Medical Plan: Patient brings up concerns about possible ADHD. Given contact number for [facility]. I am not sure if they will take her insurance so I have also placed a referral to Psychiatry. Plan Follow up in 3 months. Orders: Orders Lipid Panel 3 Months E11.9 - Type 2 diabetes mellitus without complications, E66.811 - Obesity, class 1, E78.5 - Hyperlipidemia, unspecified Basic Metabolic Panel 3 Months E11.9 - Type 2 diabetes mellitus without complications, E66.811 - Obesity, class 1, E78.5 - Hyperlipidemia, unspecified IRON PROFILE 3 Months D64.9 - Anemia, unspecified, E11.9 - Type 2 diabetes mellitus without complications, E66.811 - Obesity, class 1, E78.5 - Hyperlipidemia, unspecified Hemoglobin A1c 3 Months E11.9 - Type 2 diabetes mellitus without complications, E66.811 - Obesity, class 1, E78.5 - Hyperlipidemia, unspecified Microalbumin, Random (w Creat) 3 Months E11.9 - Type 2 diabetes mellitus without complications, E66.811 - Obesity, class 1, E78.5 - Hyperlipidemia, unspecified Complete Blood Count Auto Diff 3 Months E11.9 - Type 2 diabetes mellitus without complications, E66.811 - Obesity, class 1, E78.5 - Hyperlipidemia, unspecified Ferritin 3 Months D64.9 - Anemia, unspecified, E11.9 - Type 2 diabetes mellitus without complications, E66.811 - Obesity, class 1, E78.5 - Hyperlipidemia, unspecified Referrals Psychiatry Outpatient Consultation Service F41.8 - Other specified anxiety disorders, R41.840 - Attention and concentration deficit
[2025-04-26 13:54] VITALS: BP 102/74; PULSE 78; RESP 14; TEMP 37; O2SAT 99; BMI 34.8
== END 2025-04-26 14:23 | disposition home or self-care (01) ==
LOC: HO.HMCFM 13:46
PROVIDERS: PCP Physician Assistant Medical; Visit Provider Physician Assistant Medical
DX: E11.9 Type 2 diabetes mellitus without complications (principal); E66.811 Obesity, class 1; Z68.34 Body mass index [BMI] 34.0-34.9, adult; D64.9 Anemia, unspecified; F41.8 Other specified anxiety disorders; E78.5 Hyperlipidemia, unspecified; R41.840 Attention and concentration deficit

== ENCOUNTER → 2025-04-26 13:46 | Outpatient (BNVA) | payer OTHER, SELFPAY | PROVIDERS: PCP Physician Assistant Medical; Visit Provider Physician Assistant Medical | DX: E11.9 Type 2 diabetes mellitus without complications (principal); E66.811 Obesity, class 1; Z68.34 Body mass index [BMI] 34.0-34.9, adult; D64.9 Anemia, unspecified; F41.8 Other specified anxiety disorders; E78.5 Hyperlipidemia, unspecified; R41.840 Attention and concentration deficit | CPT/HCPCS: 96127; 99212 ==

== ENCOUNTER 2025-10-11 10:35 | Outpatient (AMB) | payer OTHER, SELFPAY ==
--- NOTE | 2025-10-11 10:39 | A.OFFPC_ITS ---
Vital Signs 10/11/25 10:45 Height 5 ft Weight 188 lb 2 oz BMI 36.7 BP 126/60 Blood Pressure Location Lt brachial Position Sitting Respiration 14 Pulse 69 Pulse Source Pulse Oximeter Temp 97.8 F Temp Source Temporal Artery Scan Pulse Oximetry (%) 97 Oxygen Delivery Method Room Air Intake Visit Reasons: Mental health , meds review Intake Note: Kely presents in the office today for a follow up to her mental health and medication review. Allergies adhesive Adverse Reaction (Mild, Verified 10/11/25 10:41) Rash Medication List - Last Reconciled 10/11/25 by LENY Torres valacyclovir 500 mg PO DAILY Tobacco use date assessed: 10/11/25 Dental Screening Dental Screen Date: 10/11/25 Did you have a dental visit in the last 12 months?: No Did you have a dental problem in the last 6 months where you did not have access to dental care?: No Was dental information given to patient?: Patient declined HPI HPI Comments History of Present Illness Details This is a 29-year-old female with a past medical history of type 2 diabetes, HSV, hyperlipidemia, benign cardiac murmur, family history of early CA D, sleep apnea and anxiety with depression presenting for follow up. Type 2 diabetes-last hemoglobin A1c 5.6% therefore insurance would not cover GLP 1 for diabetes. Metformin caused nausea. Her sister is also diabetic. She is overweight, and she endorses interval weight gain. BMI is up to 36.7. Last TSH normal. She has mild microalbuminuria on her lab work from March. Normal creatinine and GFR. Depression and anxiety -she was previously on Wellbutrin. The dose was increased to 300 mg, and she did not feel well and had headaches. She wants to restart a lower dosage because it helped with depression, and she was able to control her weight better. She tried sertraline, but it made her feel irritable and anxious. She was referred for therapy and Psychiatry. She received a phone call last week, and she is going to contact them to schedule. She also wondered if she may have ADHD. She reported getting sidetracked frequently and being forgetful and not finishing projects she starts. Her daughter is turning 1 in October. ROS: Constitutional: No unexplained weight loss, fever, chills or chills. Respiratory: No shortness of breath Cardiovascular: No chest pain Gastrointestinal: No anorexia, vomiting, abdominal pain or blood in stool. Neurologic: No headache, dizziness, syncope, no numbness or tingling in extremities Endocrine: No cold or heat intolerance. No polyuria or polydipsia. Psychiatric: No SI/HI. Physical exam: Constitutional: Alert, in no distress. Neck: Supple, Full range of motion. No lymphadenopathy. No palpable thyroid masses. Respiratory: Clear to auscultation. Cardiovascular: S1 S2 regular. No murmurs. Neurologic: No focal neurological deficits. Extremities: Warm and well perfused. No clubbing, cyanosis or edema. Psychiatric: Normal mood and affect [facility] Medical History (Updated 10/12/25 @ 08:47 by LENY Torres) Microalbuminuria Post depression Antibody response exam Concentration deficit Pre-diabetes History of prediabetes Snoring Faint heart murmur Obesity Diabetes type 2 Elevated ALT measurement Class 1 obesity Controlled type 2 diabetes mellitus Diabetes Preeclampsia Complication of section wound No known health problems No known health problems Surgical History History of loop electrosurgical excision procedure (LEEP) History of tonsillectomy Social History (Updated 10/11/25 @ 10:43 by Erica Medina [facility]) Housing: Apartment Alcohol intake: former Patient Tobacco Use Status: Former Tobacco user e-Cigarette/Vaping Use: Former Use Second Hand Smoke Exposure: No service: No Current occupational status: employed 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 1. Little interest or pleasure in doing things: more than half the days 2. Feeling down, depressed, or hopeless: several days 3. Trouble falling or staying asleep, or sleeping too much: nearly every day 4. Feeling tired or having little energy: nearly every day 5. Poor appetite or overeating: several days 6. Feeling bad about yourself - or that you are a failure or have let yourself or your family down: several days 7. Trouble concentrating on things, such as reading the newspaper or watching television: several days 8. Moving or speaking so slowly that other people could have noticed. Or the opposite - being so fidgety or restless that you have been moving around a lot more than usual: not at all 9. Thoughts that you would be better off or of hurting yourself in some way: not at all Total score: 12 Depression Screening Interpretation: Positive Depression Screening Follow-up: Existing condition and New Medication prescribed Depression Screening Done: Yes 66042 - PHQ-9 Billing: Yes Source: Developed by Drs. David Lang, Mamie Bain, Bob Muro and colleagues, with an educational steve from [employer]. Thrive Questionnaire Date Thrive assessed: 03/22/25 I am a: Patient What is your living situation today?: I have a steady place to live Within the past 12 months, did the food you bought not last and you didn't have the money to get more?: Never true Within the past 12 months, did you worry whether your food would run out before you got money to buy more?: Never true Do you have trouble paying for medicines?: No Do you have trouble getting transportation to medical appointments?: No Do you have trouble paying your heating and electricity bill?: No Do you have trouble taking care of your child, family member or friend?: No Do you have trouble with day-to-day activities such as bathing, preparing meals, shopping, managing finances, etc.?: No Are you currently unemployed and looking for a job?: No Are you interested in more education?: No Please select the resources that you would like help with: None Currently or been in a relationship where the following occur: No concerns reported THRIVE Score: 0 MARILYN-7 AMB Questionnaire MARILYN-7 Date MARILYN - 7 assessed: 10/11/25 Feeling nervous, anxious, or on edge: 1 = Several days Not being able to stop or control worryin = Several days Worrying too much about different things: 0 = Not at all Trouble relaxin = Not at all Being so restless that it is hard to sit still: 0 = Not at all Becoming easily annoyed or irritable: 2 = More than half the days Feeling afraid as if something awful might happen: 3 = Nearly every day Total MARILYN-7 score (0-4 normal; 5-9 mild; 10-14 moderate; 15-21 severe): 7 Source: Developed by Drs. David Lang, Mamie Bain, Bob Muro and colleagues, with an educational steve from [employer]. MARILYN-7 Assessment Billing MARILYN-7 Assessment Tool: MARILYN-7 Assessment 59146 Physical exam (Primary Care) Vital Signs: Last Vital Signs Temp 97.8 F 10/11/25 10:45 Pulse 69 10/11/25 10:45 Resp 14 10/11/25 10:45 BP 126/60 10/11/25 10:45 Pulse Ox 97 10/11/25 10:45 Oxygen Delivery Method Room Air 10/11/25 10:45 BMI result Body Mass Index 36.7 Tobacco/Smoking Status: Tobacco use Status Tobacco use date assessed 10/11/25 10/11/25 10:50 Patient Tobacco Use Status Former Tobacco user 10/11/25 10:43 e-Cigarette/Vaping Use Former Use 10/11/25 10:43 PHQ-9: PHQ-9 Score PHQ-9: Total score 12 10/11/25 12:45 Depression Screening Interpretation: Positive Depression Screening Follow-up: Existing condition and New Medication prescribed Thrive Assessment: Date of Thrive Assessment Date Thrive assessed 03/22/25 10/11/25 10:40 Currently or been in a relationship where the following occur: No concerns reported Office Procedures Flu Questionnaire Does the patient have a severe egg allergy?: No Does the patient have severe life threatening allergies?: No Does the patient have a fever or illness today?: No Has the patient ever had Guillain-[place] Syndrome?: No Has the patient ever had any past reaction to a flu shot?: No Immunizations Fluarix [id number] (PF) 45 mcg (15 mcg x 3)/0.5 mL IM syringe Performing Provider: LENY Torres Performing Location: [facility] [place] [facility] Administered by: Erica Medina CMA on 10/11/25 12:44 Dose Route Admin Location Dispensed Lot Number Expiration Date [facility] Scanning Clerk 0.5 mL IM Right Deltoid 0.5 mL [id number] 05/28/26 17991-965-16 [employer] V[employer] Given Date VIS Provided VIS Publication Date 10/11/25 Single Vaccine 24 Eligibility Eligibility Date Funding Source Not [facility] Eligible 10/11/25 Private Coding Level of Care Code Est Pt Level 4 (98321) Complex EM visit Add On G2211 Diagnoses Anxiety with depression F41.8 Controlled type 2 diabetes mellitus without complication, without long-term current use of insulin E11.9 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 She has to see the therapist before she can see the psychiatrist. She will restart Wellbutrin 150 mg every morning. Side effects and black box warning reviewed. We discussed possibly trying another SSRI or SNRI in combination with Wellbutrin depending on her response. (2) Controlled type 2 diabetes mellitus: Code(s): E11.9 - Type 2 diabetes mellitus without complications Category: Medical Qualifiers: Diabetes mellitus alf insulin use: without intermodal owner operator truck driver use Diabetes mellitus complication status: without complication Qualified Code(s): E11.9 - Type 2 diabetes mellitus without complications Plan: She is due for lab work. She will have this completed. Diabetic diet encouraged. Recommended regular exercise to promote a healthy weight. (3) Class 1 obesity: Code(s): E66.811 - Obesity, class 1 Category: Medical Plan: She has a history of type 2 diabetes, insulin resistance and hyperlipidemia. She did not tolerate metformin due to side effects. Her insurance did not cover GLP 1 for diabetes because her A1c is low. I asked her to contact her insurance to see if they will cover for weight loss given her medical history. She denies contraindications to this type of medication. Continue lifestyle modifications. (4) Microalbuminuria: Code(s): R80.9 - Proteinuria, unspecified Category: Medical Plan: Recheck labs. Avoid nephrotoxic medications. Consider pharmacotherapy if this persists. Orders: Orders Influenza [id number] Immunization 10/11/25 Z23 - Encounter for immunization TSH reflex Free T4 10/11/25 E11.9 - Type 2 diabetes mellitus without complications Medications: New bupropion HCl XL (Wellbutrin XL) 150 mg PO QAM 90 tabs 1RF
[2025-10-11 10:45] VITALS: BP 126/60; PULSE 69; RESP 14; TEMP 36.6; O2SAT 97; BMI 36.7
--- OUTSIDE RECORDS SUMMARY | 2025-10-11 12:59 | XMS_ITS | Encounter Summary ---
Author Organization [facility] Address [address] [place] [address] Phone Care Team Providers Care Agricultural Extension Agent Name Role Phone Pcp, Not Required Primary Care Provider Tameka Nicole Primary Care Provide r Jarred Sharp MD Unavailable [phone] Analy Denny RN Unavailable [email or web address] Kristy Barton MD Primary Care Provid er Ayden Perez MD Primary Care Provider Encounter Details Date Type Department Care Team (Late st Contact Info) Description 09/08/2018 Procedure Pass OR Admitting Dept - Virtual Department [address] [place] [id number] Social History Tobacco Use Types Packs/Day Years Used Date Smoking Tobacco: Former Cigarettes Smokeless Tobacco: Current Comments:qit smoking 6 month s ago-uses Vape Alcohol Use Standard Drinks/Week Comments Yes 0 (1 standard drink = 0.6 oz pur e alcohol) a couple a week Comments Unknown Sex and Gender Information Value Date Recorded Sex Assigned at Female 08/24/2022 9:08 AM EDT Legal Sex Female 4:47 PM EDT Gender Identity Female 08/24/2022 9:08 AM EDT Sexual Orientation Not on file documented as of this encounter Plan of Treatment Not on file documented as of this encounter Visit Diagnoses Not on filedocumented in this encounter Care Teams Agricultural Extension Agent Relationship Specialty Start Date End Date Pcp, Not Required [address] [place] [address] PCP - General 05/29/18 10/06/20 Tameka Conde PA [address] [place] [address] [email or web address] PCP - General 10/07/20 04/30/22 Kristy Barton MD [address] [place] [address] [address] [place] [address] [email or web address] PCP - General Family Medicine 05/01/22 03/28/24 Ayden Perez MD [address] [place] [address] [address] [place] [address] PCP - General Family Medicine 03/29/24 Jarred Sharp MD [address] [place] [address], [address] [place] [address] [email or web address] Internal Medicine 10/07/20 Analy Denny RN [address] [place] [address], [address] [place] [address] [email or web address] 04/29/2105/15 documented as of this encounter Additional Source Comments The information contained in this document represents components of the legal health record. It is not the complete legal health record.[facility]
--- OUTSIDE RECORDS SUMMARY | 2025-10-11 12:59 | XMS_ITS | Clinical Summary ---
Author Organization [facility] Address [address] [place] [address] Phone Care Team Providers Care Heavy Media Operator Name Role Phone Jarred Sharp MD Unavailable [phone] Ayden Perez MD Primary Care Provider Allergies Active Allergy Reactions Criticality Noted Date Comments Latex Rash Low 09/05/2018 Adhesives and latex Medications valACYclovir (VALTREX) 500 MG tabletIndication s:HSV infection Take 1 tablet (500 mg total) by mouth daily. 90 tablet 07/30/2022 Active buPROPion (WELLBUTRIN XL) 300 MG ER 24 hr tabletIndication s:Moderate episode of recurrent major depressive disorder Take 1 tablet (300 mg total) by mouth daily. 90 tablet 07/30/2022 Active buPROPion (WELLBUTRIN XL) 150 MG ER 24 hr tablet Take 150 mg by mouth every morning. Active cyclobenzaprine (FLEXERIL) 10 MG tablet Take 1 tablet (10 mg total) by mouth 3 (three) times a day as needed (muscle). 9 tablet 03/29/2024 Active Active Problems Problem Noted Date Diagnosed Date Obesity (BMI 30-39.9) 10/13/2021 Assessment & Plan (10/13/2021 11:54 AM EST): No change in weight in past year Amenorrhea 10/13/2021 Assessment & Plan (10/13/2021 1:05 PM EST): Cycle length normally is 24 days, missed a period in July, Sep 19 period was 4 days and bundler seasonal greenery than normal. No bleeding since then. Had Pfizer vaccination June and August. Has been going through a stressful breakup for months. Discussed that stress/vaccines can affect menses. test negative today. Advised to monitor cycle, and if she does not get a nromal period within the coming month, I advise a progestin withdrawal (10 days of provera 10mg and expect a period - take preg test before). She will message in portal if period does not come. She is not interested in contraception at this time; she had actually be trying to conceive prior to this breakup; has no new partner. OSVALDO III (cervical intraepithelial neoplasia III) 07/03/2021 Overview (10/13/2021): On PAP and colpo 2017 - LEEP CIN3 with neg angelika 2018 normal PAP 2020 normal NILM HPV+ 06/2021 benign cx bx High risk human papilloma virus (HPV) infection of cervix 07/03/2021 Overview (07/03/2021): 2020 NILM/HPV+ Pre-diabetes 03/11/2021 Assessment & Plan (01/09/2022 2:30 PM EST): New problem diagnosed in the past year. Has worked hard and lost considerable amount of weight. Did not tolerate metformin. -repeat A1C Assessment & Plan (05/21/2021 4:56 PM EDT): New problem. Last a1c was 6.2% in January. Started on metformin after that and is due for repeat labs. -congratulated her on 10 pound weight loss. She will keep up the good work on diet/exercise changes -she will have A1C repeated this week and will adjust metformin dosing as needed. Otherwise, plan to follow up in 6 months for recheck Low HDL (under 40) 03/11/2021 Encounter for routine adult health examination with abnormal findings 11/13/2020 Assessment & Plan (01/09/2022 2:28 PM EST): Pap: utd. Had benign colpo this past fall. Will be due for repeat pap in June with [facility] SIGNALS COLLECTION TECHNICIAN Labs: cbc/cmp/a1c ordered. Std screening ordered Immunizations: tdap given today. Declines flu shot. Counseling provided Follow up annually for CPE and as needed Assessment & Plan (11/13/2020 12:30 PM EST): Pap: due. She is scheduled for follow up with [facility] SIGNALS COLLECTION TECHNICIAN given history of abnormal pap Labs: cbc/cmp/a1c/lipids/tsh ordered. Std screening ordered Immunizations: believes she is utd on tetanus booster. Declines flu shot. Counseling provided Follow up annually for CPE and as needed HSV infection 11/13/2020 Assessment & Plan (11/13/2020 12:30 PM EST): Doing well with valtrex 500mg daily for suppression -will refill Moderate episode of recurrent major depressive d isorder 11/13/2020 Assessment & Plan (01/09/2022 2:29 PM EST): Recurrent with some improvement since starting wellbutrin. Denies any SE and feels medication has helped but not completely controlling depression. Denies SI or thoughts of self harm -increase wellbutrin to 300mg XL daily -continue to follow with therapist -discussed if no significant improvement in the next 4-[address] referral for med consult Assessment & Plan (05/21/2021 4:54 PM EDT): Recurrent with recent improvement since starting wellbutrin. Denies any SE and feels medication has been effective. -will plan to transition to wellbutrin 150mg XL once daily for more consistent dosing -discussed she may continue to see some improvement in the next few weeks as well -plan to recheck in 6 months if she is doing well but understands she can always follow up sooner with another provider if any concerns. Assessment & Plan (04/23/2021 7:36 PM EDT): Recurrent with recent worsening affecting her functionality. Discussed several treatment options including therapy and medication options -[facility] referral for MH resources placed and number for [facility] given. She will call [facility] to do intake -will do trial of starting wellbutrin 150mg SR bid for treatment of depression. Reviewed SE including the black box warning. -plan to follow up in 3-4 weeks for recheck or sooner if any concerns. She will have labs done prior to that apt as well so we can review. Assessment & Plan (11/13/2020 12:32 PM EST): Feels like she is at her baseline. Feels she is coping well with her depressed mood which is chronic. She denies active SI or thoughts of self harm and feels she has good support. -gave information on [facility] as an option for establishing with a therapist -discussed following up if she ever felt mood was worsening. Could discuss medication which she declines at this time. Chronic tonsillitis 09/08/2018 Immunizations Immunization Administration Dates Next Due Tdap 01/09/2022 Family History Medical History Relation Comments Heart attack Father Diabetes Sister Relation Status Comments Father Mother Alive Sister Alive Social History Tobacco Use Types Packs/Day Years Used Date Smoking Tobacco: Some Days Cigarettes 1 8 Started: 2008; Last attempted to quit: 2016 Smokeless Tobacco: Never Comments:a pack a week Alcohol Use Standard Drinks/Week Comments Yes 1 (1 standard drink = 0.6 oz pur e alcohol) 1-2 glasses of wine Child or Family Care Answer Date Record ed Do you have problems with on e of the following making it difficult for you to work, study, or receive health care? No 01/09/2022 Education Answer Date Recorded Are you interested in more education? Not on eloina e 01/11/2024 Are you concerned about learning? Not on file 01/11/2024 No 01/11/2024 No 01/11/2024 Food Answer Date Recorded Within the past 6 months we worried whether our food would run out before we got money to buy more. Never True 01/09/2022 Within the past 6 months the food we bought just didn't last and we didn't have enough money to get more. Never True Residential Stability Answer Date Recor ded What is your housing situation today? I have zach zaldivar 01/09/2022 How many times have you move d in the past 12 months? Zero (I did not move) 01/09/2022 06 Are you worried that in t he next 2 months, you may not have your own housing to live in? No 01/09/2022 Paying for Meds Answer Date Recorded Do you have trouble paying for medicines? No 01/09/2022 Paying Utility Bills Answer Date Record ed Do you have trouble paying your heating or elect ricity bill? No 01/09/2022 Transportation Answer Date Recorded Has the lack of transportati on kept you from medical appointments or from getting medications? No 01/09/2022 Unemployment Answer Date Recorded Are you currently unemployed or working on a part-time or temporary basis, and looking for work? No 01/09/2022 Digital Access Answer Date Recorded No 04/26/2023 No 04/26/2023 No 04/26/2023 Reliable internet access at home? Not on file 04/26/2023 Device with a working camera? Not on file Comments No Sex and Gender Information Value Date Recorded Sex Assigned at Female 08/24/2022 9:08 AM EDT Legal Sex Female 4:47 PM EDT Gender Identity Female 08/24/2022 9:08 AM EDT Sexual Orientation Not on file Occupation Industry Job Start Date Job End Date [employer] Not on file Not on file Not on file Last Filed Vital Signs Vital Sign Reading Time Taken Comments Blood Pressure 128/86 03/29/2024 7:09 PM EDT Pulse 88 03/29/2024 7:09 PM EDT Temperature 36.5 C (97.7 F) 03/29/2024 7:09 PM EDT Respiratory Rate 16 03/29/2024 7:09 PM EDT Oxygen Saturation 98% 03/29/2024 7:0 9 PM EDT Inhaled Oxygen Concentration - - Weight 77.1 kg (170 lb) 03/29/2024 7:09 PM EDT patient reported Height 152.4 cm (5') 03/29/2024 7:09 PM EDT patient reported Body Mass Index 33.2 03/29/2024 7:09 PM EDT Plan of Treatment Health Maintenance Due Date Last Done Comments SMOKING Hx and SMOKELESS TOBACCO SCREENING 2008 PNEUMOCOCCAL VACCINES (0-49 years) (1 of 2 - PCV) 2014 PAP SMEAR 05/13/2022 05/13/2021 DEPRESSION SCREENING 01/09/2023 01/09/2022, 01/09/2022 INFLUENZA VACCINE (#1) 2025 COVID-19 VACCINE ( - 2024-2 6 season) 2025 Adult Td,Tdap Booster 01/09/2032 01/09/2022 HEPATITIS C SCREENING Completed 02/26/2021 , 02/26/2021 HIV ONE-TIME SCREENING (18-6 5 YEARS) Completed 02/26/2021 HEPATITIS A VACCINES Aged Out No long er eligible based on patient's age to complete this topic HIB VACCINES Aged Out No longer eligi ble based on patient's age to complete this topic IPV VACCINES Aged Out No longer eligi ble based on patient's age to complete this topic MENINGOCOCCAL VACCINES (ACWY) Aged Out No longer eligible based on patient's age to complete this topic MENINGOCOCCAL VACCINES (B) Aged Out N o longer eligible based on patient's age to complete this topic Medical Devices Not on file Procedures Procedure Name Priority Date/Time Associated Diagnosis Comments PAP TEST Routine 05/13/2021 12:00 AM EDT HEPATITIS C ANTIBODY, QUALITATIVE Routine 02/26/2021 1:58 PM EDT Encounter for routine adult health examination with abnormal findings Screen for STD (sexually transmitted disease) from Last 3 Months or Most Recently Relevant to Health Maintenance Results * Pap Smear (05/13/2021 12:00 AM EDT) 05/13/2021 05/14/2021 9:3 6 AM EDT Narrative SEE NARRATIVE - 05/19/2021 6:25 PM EDT [address] [address] Senior Administrative Support: Yvrose Benito MD SIGNALS COLLECTION TECHNICIAN Cytology Report FINAL DIAGNOSIS A. PAP SMEAR (SUREPATH) CE: SPECIMEN ADEQUACY: Satisfactory for evaluation; transformation zone present. INTERPRETATION: NEGATIVE FOR INTRAEPITHELIAL LESION OR MALIGNANCY. Reactive changes. Fungal organisms morphologically consistent with Mary species. Coccobacilli consistent with shift in jo-ann Electronically Signed Out By: MD Lucho Wilson CT(ASCP) PURA Starks(ASCP) By his/her signature above, the pathologist listed as making the Final Diagnosis certifies that he/she has personally reviewed this case and confirmed or corrected the diagnosis. The Pap test is a screening test primarily for squamous cancers and precursors and has associated false-negative and false-positive results. New technologies such as liquid-based preparations may decrease but will not eliminate all false-negative results. Regular sampling and follow-up of unexplained clinical signs and symptoms are recommended to minimize false negative results. PROCEDURES/ADDENDA HPV Testing (Requested) Ordered Date: 05/14/2021 A. PAP SMEAR (SUREPATH) CE: Human Papilloma Virus TEST Positive for high-risk Human Papilloma Virus (HR-HPV); additional testing was necessary to identify the most virulent high-risk strains. The current sample is positive for high-risk Human Papilloma Virus type Other high risk (non-type 16, 18, or 45) probe set (Includes 31, 33, 35, 39, 51, 52, 56, 58, 59, 66, 68) by [employer] HR-HPV analysis. Negative for high-risk Human Papilloma Virus types 16, 18 and 45 by [employer] HR-HPV analysis. Clinical correlation is advised. This HPV test was performed at [facility], [address] [place] [address]. This test has been FDA approved for SurePath cervical cytology specimens. The accuracy and precision of this test for all other specimen sources has been verified in the Cytopathology Laboratory of the [facility] and has not been cleared or approved by the U.S. Food and Drug Administration. Clinical correlation is advised. CLINICAL HISTORY Date of Last Menstrual Period: Not Provided Menstrual History: Unknown Infection History: HPV: OTHER HIGH RISK; 2020 Treatment History: LEEP Other Clinical Conditions: Screening Pap Abnormal PAP at Other Lab: [facility] SPECIMEN SOURCE A: PAP SMEAR (SUREPATH) CE Patient Name: KELY DEE : 1995 (Age: 26) Sex: F Institution: [facility] Location: [facility] Date of Collection: 05/13/2021 Date of Reported: 05/19/2021 18:25 Results to: Nomi Noriega MD, BS us Nomi Noriega MD CYTOLOGY ORDERABLES Final Res ult SEE NARRATIVE * Hepatitis C antibody, qualitative (02/26/2021 1:58 PM EDT) HCV NON-REACTIV E NON-REACTI VE [facility] Blood 02/26/2021 1:58 PM EDT 02/26/2021 2:09 PM EDT us Tameka Conde PA LAB BLOOD BKR ORDERAB LES Final Result [facility] [address] [place] [address] from Last 3 Months or Most Recently Relevant to Health Maintenance Insurance [employer] [facility] CHOICE [employer] [facility] [employer] [place] CHOICE [place] [address] [place] [address] CHOICE CHOICE [facility] CHOICE Care Teams Heavy Media Operator Relationship Specialty Start Date End Date Ayden Perez MD [address] [place] [address], [address] [place] [address] PCP - General Family Medicine 03/29/24 Jarred Sharp MD [address] [place] [address], [address] [place] [address] [email or web address] Internal Medicine 10/07/20 Additional Source Comments The information contained in this document represents components of the legal health record. It is not the complete legal health record.[facility]
== END 2025-10-11 11:19 | disposition home or self-care (01) ==
LOC: HO.HMCFM 10:36
PROVIDERS: PCP Physician Assistant Medical; Visit Provider Physician Assistant Medical
DX: Z23 Encounter for immunization (principal)

== ENCOUNTER → 2025-10-11 10:35 | Outpatient (BNVA) | payer OTHER, SELFPAY | PROVIDERS: PCP Physician Assistant Medical; Visit Provider Physician Assistant Medical | DX: Z23 Encounter for immunization (principal) | CPT/HCPCS: 90471; 90656; 96127 ==

== ENCOUNTER 2025-10-17 08:12 | Outpatient (REF) | payer OTHER, SELFPAY ==
[2025-10-17 10:35] LABS: MANUAL DIFF FLAG NO
[2025-10-17 10:39] LABS: Hematocrit 39.5 % (37.0-47.0); Hemoglobin 12.3 g/dl (12.0-16.0); Imm Gran Abs Auto 0.03 X10*3/uL (0.00-0.03); Imm Gran Pct Auto 0.3 % (0.0-0.4); Lymphocytes Absolute Auto 2.1 X10*3/uL (1.2-4.9); Mean Corpuscular HGB Conc 31.1 g/dl (31.0-35.0); Mean Corpuscular Hemoglobin 24.6 pg (27.0-33.0); Mean Corpuscular Volume 78.8 fL (80.0-98.0); NRBC Abs Auto 0.000 X10*3/uL (0.0-0.012); NRBC Pct Auto 0.0 /100WBC (0.0-0.2); Platelet Count 286 X10*3/uL (160-400); Red Blood Count 5.01 X10*6/uL (4.20-5.50); White Blood Count 9.1 X10*3/uL (4.8-10.8)
[2025-10-17 11:20] LABS: Anion Gap 10 (12-20); Blood Urea Nitrogen 8 mg/dL (9-16); Calcium 9.3 mg/dL (8.4-10.2); Carbon Dioxide 24 mmol/L (22-29); Chloride 103 mmol/L (96-108); Cholesterol 156 mg/dL (<200); Estimated Glomerular Filt Rate > 60; HDL Cholesterol 28 mg/dL (>40); Iron 32 mcg/dL (30-160); Microalbum/Creatinine Ratio Ur 18.0 ug/mg cr (<30); Percent Iron Saturation 11 % (15-50); Potassium 4.0 mmol/L (3.3-5.1); Sodium 133 mmol/L (135-145); Total Iron Binding Capacity 282 mcg/dL (228-428); Triglycerides 131 mg/dL (<150); Unsaturated Iron Binding 250 ug/dL
[2025-10-17 11:30] LABS: HBS Num1 1.08 mIU/mL (0-7.99); ~Hepatitis B Surface Antibody NONREACTIVE (Nonreactive)
[2025-10-17 11:40] LABS: Ferritin 35 ng/mL (10-122)
--- OUTSIDE RECORDS SUMMARY | 2025-10-17 15:49 | XMS_ITS | Clinical Summary ---
Author Organization [facility] Address [address] [place] [address] Phone Care Team Providers Care Quality Cloth Tester Name Role Phone Jarred Sharp MD Unavailable [phone] Ayden Perez MD Primary Care Provider [...] Sep 19 period was 4 days and patternmaker hand than normal. No bleeding since then. Had [...] due for repeat pap in June with [facility] ENERGY DERIVATIVES TRADER Labs: cbc/cmp/a1c ordered. Std screening ordered Immunizations: tdap given today. Declines flu shot. Counseling provided Follow up annually for CPE and as needed Assessment & Plan (11/13/2020 12:30 PM EST): Pap: due. She is scheduled for follow up with [facility] ENERGY DERIVATIVES TRADER given history of abnormal pap Labs: cbc/cmp/a1c/lipids/tsh [...] treatment options including therapy and medication options -[facility] referral for MH resources placed and number for [facility] given. She will call [facility] to do intake -will do trial of [...] she has good support. -gave information on [facility] as an option for establishing with a [...] Industry Job Start Date Job End Date long term Not on file Not on file Not [...] SEE NARRATIVE - 05/19/2021 6:25 [place] [address] Clerk Of Scales: Yvrose Benito MD ENERGY DERIVATIVES TRADER Cytology Report FINAL DIAGNOSIS A. PAP SMEAR [...] 52, 56, 58, 59, 66, 68) by [employer] HR-HPV analysis. Negative for high-risk Human Papilloma Virus types 16, 18 and 45 by [employer] HR-HPV analysis. Clinical correlation is advised. This HPV test was performed at [facility], [address] [place] [address]. This test has been FDA approved for SurePath cervical cytology specimens. The accuracy and precision of this test for all other specimen sources has been verified in the Cytopathology Laboratory of the [facility] and has not been cleared or [...] : 1995 (Age: 26) Sex: F Institution: [facility] Location: [facility] Date of Collection: 05/13/2021 Date of Reported: 05/19/2021 18:25 Results to: Nomi Noriega MD, BS us Nomi Noriega MD CYTOLOGY ORDERABLES Final Res ult SEE NARRATIVE * Hepatitis C antibody, qualitative (02/26/2021 1:58 PM EDT) HCV NON-REACTIV E NON-REACTI VE [facility] Blood 02/26/2021 1:58 PM EDT 02/26/2021 2:09 PM EDT us Tameka Conde PA LAB BLOOD BKR ORDERAB LES Final Result Performing Organization Address City/State/[facility] Co de Phone Number [address] [address] from Last 3 Months or Most Recently Relevant to Health Maintenance Insurance [employer] [facility] [employer] [facility] [employer] [place] [address] [address] [place] [address] [place] [address] [place] [address] [place] [address] [place] [address] [place] [address] CHOICE [employer] CHOICE Care Teams Quality Cloth Tester Relationship Specialty Start Date End Date Ayden Perez MD [address] [place] [address], [address] [place] [address] PCP - General Family Medicine 03/29/24 Jarred Sharp MD [address] [place] [address], [address] [place] [address] [email or web address] Internal Medicine 10/07/20 Additional Source Comments The information contained in this document represents components of the legal health record. It is not the complete legal health record.[facility]
--- OUTSIDE RECORDS SUMMARY | 2025-10-17 15:49 | XMS_ITS | Encounter Summary ---
Author Organization [facility] Address [address] [place] [address] Phone Care Team Providers Care Title Lawyer Name Role Phone Pcp, Not Required Primary Care Provider Tameka Nicole Primary Care Provide r Jarred Sharp MD Unavailable [phone] Analy Denny RN Unavailable [email or web address] Kristy Barton MD Primary Care Provid er Ayden Perez MD Primary Care Provider Encounter Details Date Type Department Care Team (Late st Contact Info) Description 09/08/2018 Procedure Pass OR Admitting Dept - Virtual Department [address] [place] [address] Social History Tobacco Use Types Packs/Day Years [...] on filedocumented in this encounter Care Teams Title Lawyer Relationship Specialty Start Date End Date Pcp, Not Required [address] [place] [address] PCP - General 05/29/18 10/06/20 Tameka Conde PA [address] [place] [address] [email or web address] PCP - General 10/07/20 04/30/22 Kristy Barton MD [address] [place] [address] [address] [place] [address] [email or web address] PCP - General Family Medicine 05/01/22 03/28/24 Ayden Perez MD [address] [place] [address] [address] [place] [address] PCP - General Family Medicine 03/29/24 Jarred Sharp MD [address] [place] [address], [address] [place] [address] [email or web address] Internal Medicine 10/07/20 Analy Denny RN [address] [place] [address], [address] [place] [address] [email or web address] Print Binding Worker 04/29/2105/15 documented as of this encounter Additional Source Comments The information contained in this document represents components of the legal health record. It is not the complete legal health record.[facility]
[2025-10-18 07:03] LABS: Rubeola IgG (Measles) 32.70 AU/mL
== END 2025-10-17 08:13 | disposition home or self-care (01) ==
LOC: HO.HMGCLDS 08:12
PROVIDERS: PCP Physician Assistant Medical; Visit Provider Physician Assistant Medical
DX: Z01.84 Encounter for antibody response examination (principal); Z11.59 Encounter for screening for other viral diseases; E11.9 Type 2 diabetes mellitus without complications; E78.5 Hyperlipidemia, unspecified; E66.811 Obesity, class 1; D64.9 Anemia, unspecified
CPT/HCPCS: 36415; 80048; 80061; 82043; 82570; 82728; 83036; 83540; 84443; 85025; 86706; 86735; 86762; 86765; 86787

== ENCOUNTER 2025-11-13 16:02 | Outpatient (REF) | payer OTHER, SELFPAY ==
[2025-11-13 16:55] LABS: Sodium 138 mmol/L (135-145)
--- OUTSIDE RECORDS SUMMARY | 2025-11-13 20:05 | XMS_ITS | Encounter Summary ---
Author Organization [facility] Address [address] [place] [phone] Phone Care Team Providers Care Battery Container Tester Aluminum Name Role Phone Pcp, Not Required Primary Care Provider Tameka Nicole Primary Care Provide r Jarred Sharp MD Unavailable [phone] Analy Denny RN Unavailable [email or web address] Kristy Barton MD Primary Care Provid er Ayden Perez MD Primary Care Provider Encounter Details Date Type Department Care Team (Late st Contact Info) Description 09/08/2018 Procedure Pass OR Admitting Dept - [facility] Department [address] [place] [id number] Social History Tobacco Use Types Packs/Day Years [...] on filedocumented in this encounter Care Teams Battery Container Tester Aluminum Relationship Specialty Start Date End Date Pcp, Not Required PCP - General 05/29/18 10/06/20 Tameka Conde PA [address] [place] [id number] [email or web address] PCP - General 10/07/20 04/30/22 Kristy Barton MD [address] [place] [address] [address] [place] [address] [email or web address] PCP - General Family Medicine 05/01/22 03/28/24 Ayden Perez MD [address] [place] [address] [address] [place] [address] PCP - General Family Medicine 03/29/24 Jarred Sharp MD [address] [place] [address], [address] [place] [address] [email or web address] Internal Medicine 10/07/20 Analy Denny RN [address] [place] [address], [address] [place] [address] [email or web address] PHCM Cap Sewer 04/29/2105/15 documented as of this encounter Additional Source Comments The information contained in this document represents components of the legal health record. It is not the complete legal health record.[facility]
--- OUTSIDE RECORDS SUMMARY | 2025-11-13 20:05 | XMS_ITS | Clinical Summary ---
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 No bleeding since then. Had [...] due for repeat pap in June with [facility] Labs: cbc/cmp/a1c ordered. Std screening ordered Immunizations: tdap given today. Declines flu shot. Counseling provided Follow up annually for CPE and as needed Assessment & Plan (11/13/2020 12:30 PM EST): Pap: due. She is scheduled for follow up with [facility] given history of abnormal pap Labs: cbc/cmp/a1c/lipids/tsh [...] treatment options including therapy and medication options -[facility] referral for MH resources placed and number for [facility] given. She will call [facility] to do intake -will do trial of [...] she has good support. -gave information on [facility] as an option for establishing with a [...] Industry Job Start Date Job End Date halfway Not on file Not on file Not [...] SEE NARRATIVE - 05/19/2021 6:25 [place] [address] Foreign Service Officer: Yvrose Benito MD [facility] Cytology Report FINAL DIAGNOSIS A. PAP SMEAR [...] 52, 56, 58, 59, 66, 68) by [employer] HR-HPV analysis. Negative for high-risk Human Papilloma Virus types 16, 18 and 45 by [employer] HR-HPV analysis. Clinical correlation is advised. This HPV test was performed at [facility], [address] [place] [address]. This test has been FDA approved for [facility] cervical cytology specimens. The accuracy and precision of this test for all other specimen sources has been verified in the Cytopathology Laboratory of the [facility] and has not been cleared or approved [...] : 1995 (Age: 26) Sex: F Institution: [facility] Location: [facility] Date of Collection: 05/13/2021 Date of Reported: 05/19/2021 18:25 Results to: Nomi Noriega MD, BS us Nomi Noriega MD CYTOLOGY ORDERABLES Final Res ult SEE NARRATIVE * Hepatitis C antibody, qualitative (02/26/2021 1:58 PM EDT) HCV NON-REACTIV E NON-REACTI VE [facility] Blood 02/26/2021 1:58 PM EDT 02/26/2021 2:09 PM EDT us Tameka Conde PA LAB BLOOD BKR ORDERAB LES Final Result Performing Organization Address City/State/[facility] Co de Phone Number [address] [address] from Last 3 Months or Most Recently Relevant to Health Maintenance Insurance [employer] [facility] [employer] [facility] [employer] [address] [place] [address] [place] [address] [place] [address] [place] [address] [place] [address] [place] [address] CHOICE [employer] Care Teams Turbo Electric Operator Relationship Specialty Start Date End Date Ayden Perez MD [address] [place] [address], [address] [place] [address] PCP - General Family Medicine 03/29/24 Jarred Sharp MD [address] [place] [address], [address] [place] [address] [email or web address] Internal Medicine 10/07/20 Additional Source Comments The information contained in this document represents components of the legal health record. It is not the complete legal health record.[facility]
== END 2025-11-13 16:03 | disposition home or self-care (01) ==
LOC: HO.LAB 16:02
PROVIDERS: PCP Physician Assistant Medical; Visit Provider Physician Assistant Medical
DX: R79.89 Other specified abnormal findings of blood chemistry (principal)
CPT/HCPCS: 36415; 84295